=== PATIENT | male | born 1970 ===

== ENCOUNTER 2020-06-08 11:29 | Outpatient (REF) | payer OTHER, SELFPAY ==
[2020-06-08 12:57] LABS: MANUAL DIFF FLAG NO
[2020-06-08 13:11] LABS: Basophils Absolute Auto 0.1 X10*3/uL (0.0-0.2); Basophils Percent Auto 0.6 % (0-2); Eosinophils Absolute Auto 0.2 X10*3/uL (0.0-0.4); Eosinophils Percent Auto 1.9 % (0-4); Hematocrit 45.9 % (42-52); Hemoglobin 15.9 g/dl (14.0-18.0); Imm Gran Abs Auto 0.05 X10*3/uL (0.00-0.03); Imm Gran Pct Auto 0.6 % (0.0-0.4); Lymphocytes Absolute Auto 2.3 X10*3/uL (1.2-4.9); Lymphocytes Percent Auto 29.2 % (20-40); Mean Corpuscular HGB Conc 34.6 g/dl (31.0-36.0); Mean Corpuscular Hemoglobin 33.8 pg (27.0-33.0); Mean Corpuscular Volume 97.7 fL (80-98); Mean Platelet Volume 10.2 fL (9.4-12.4); Monocytes Absolute Auto 0.7 X10*3/uL (0.1-1.2); Monocytes Percent Auto 8.3 % (2-11); Neutrophils Absolute Auto 4.6 X10*3/uL (2.0-8.3); Neutrophils Percent Auto 59.4 % (45-73); Platelet Count 197 X10*3/uL (160-400); Red Cell Distribution Width 11.7 % (11.0-16.0); White Blood Count 7.8 X10*3/uL (4.8-10.8)
[2020-06-08 13:29] LABS: Alanine Aminotransferase 142 U/L (0-40); Albumin Level 4.3 g/dL (3.5-5.0); Alkaline Phosphatase 80 U/L (39-117); Anion Gap 15 (12-20); Aspartate Amino Transferase 80 U/L (5-37); Bilirubin Total 0.8 mg/dL (0.0-1.0); Blood Urea Nitrogen 16 mg/dL (9-16); Carbon Dioxide 26 mmol/L (22-29); Chloride 106 mmol/L (96-108); Cholesterol 217 mg/dL; Estimated Glomerular Filt Rate > 60; Glucose Fasting 90 mg/dL (60-99); HDL Cholesterol 33 mg/dL; LDL Cholesterol Calculated 133 mg/dl; Potassium 3.9 mmol/L (3.3-5.1); Sodium 143 mmol/L (135-145); Total Protein 7.1 g/dL (6.5-8.0); Triglycerides 257 mg/dL
[2020-06-08 13:50] LABS: TSH reflex Free T4 1.39 uIU/mL (0.32-4.0)
[2020-06-08 13:58] LABS: Erythrocyte Sedimentation Rate 1 MM/HR (0-15)
[2020-06-08 14:06] LABS: Glucose Urine UA NEG (NEG); Leukocyte Esterase Urine NEG (NEG); Nitrite Urine NEG (NEG); PH 5.5 (5.0-8.0); Specific Gravity - Urine >= 1.030 (1.005-1.025); Urine Blood NEG (NEG); Urine Ketones NEG (NEG); Urine Protein NEG (NEG-TRACE)
[2020-06-08 14:17] LABS: Appearance Urine CLEAR; Color Urine YELLOW
== END 2020-06-08 11:30 | disposition home or self-care (01) ==
LOC: HO.LAB 11:29
PROVIDERS: PCP Internal Medicine; Visit Provider Internal Medicine
DX: E66.9 Obesity, unspecified (principal); E78.00 Pure hypercholesterolemia, unspecified; R79.89 Other specified abnormal findings of blood chemistry; M47.814 Spondylosis without myelopathy or radiculopathy, thoracic region; F17.200 Nicotine dependence, unspecified, uncomplicated; J45.909 Unspecified asthma, uncomplicated; L81.9 Disorder of pigmentation, unspecified
CPT/HCPCS: 36415; 80053; 80061; 81003; 84443; 85025; 85652

== ENCOUNTER 2020-07-14 15:27 | Outpatient (REF) | payer OTHER, SELFPAY ==
[2020-07-15 04:42] LABS: SARS COV2 PCR INHOUSE NEGATIVE (Negative)
== END 2020-07-14 15:28 | disposition home or self-care (01) ==
LOC: HO.LAB 15:27
PROVIDERS: Visit Provider Internal Medicine
DX: Z20.822 Contact with and (suspected) exposure to COVID-19 (principal)
CPT/HCPCS: C9803; U0003

== ENCOUNTER 2020-09-05 11:23 | Outpatient (REF) | payer OTHER, SELFPAY ==
[2020-09-05 12:33] LABS: Alanine Aminotransferase 158 U/L (0-40); Albumin Level 4.2 g/dL (3.5-5.0); Alkaline Phosphatase 73 U/L (39-117); Anion Gap 12 (12-20); Aspartate Amino Transferase 85 U/L (5-37); Bilirubin Total 1.1 mg/dL (0.0-1.0); Blood Urea Nitrogen 19 mg/dL (9-16); Calcium 9.2 mg/dL (8.4-10.2); Carbon Dioxide 24 mmol/L (22-29); Chloride 104 mmol/L (96-108); Estimated Glomerular Filt Rate > 60; Gamma Glutamyl Transpeptidase 181 U/L (11-51); Glucose Random 124 mg/dL (60-115); Potassium 3.9 mmol/L (3.3-5.1); Sodium 136 mmol/L (135-145); Total Protein 6.9 g/dL (6.5-8.0)
[2020-09-06 08:03] LABS: HBS Num1 0.27 mIU/mL (0-7.99); HBc Num1 0.04 S/CO (0.00-0.79); Hepatitis A Antibody IgM 0.15 Index (0-0.79); Hepatitis B Core Antibody Nonreactive (Nonreactive); ~HepC Num1 0.13 S/CO (0.00-0.79); ~Hepatitis A Antibody IgM Nonreactive (Nonreactive); ~Hepatitis B Surface Antibody NONREACTIVE (Nonreactive); ~Hepatitis C Antibody Nonreactive (Nonreactive)
[2020-09-06 08:27] LABS: HBsAGNum1 0.26 S/CO (0.00-0.99); Hepatitis B Surface Antigen Negative (Negative)
== END 2020-09-05 11:24 | disposition home or self-care (01) ==
LOC: HO.LAB 11:23
PROVIDERS: PCP Internal Medicine; Visit Provider Internal Medicine
DX: Z01.84 Encounter for antibody response examination (principal); R79.89 Other specified abnormal findings of blood chemistry
CPT/HCPCS: 36415; 80053; 82977; 86704; 86706; 86709; 86803; 87340

== ENCOUNTER 2020-10-10 08:45 | Outpatient (REF) | payer OTHER, SELFPAY ==
--- NOTE | ~2020-10-10 | US_ITS ---
EXAMINATION: US ABDOMEN COMPLETE CLINICAL INFORMATION: Other specified abnormal findings of blood chemistry. COMPARISON: Abnormal blood chemistry TECHNIQUE: Real-time imaging of the abdominal viscera. FINDINGS: PANCREAS: The pancreas is completely obscured by overlying gas. ABDOMINAL AORTA: The proximal, mid, and distal segments are normal in caliber. INFERIOR VENA CAVA: Visualized portions are normal. LIVER: The liver is normal in size. The liver contour is normal. There is diffuse increased liver echogenicity with focal fatty sparing adjacent to gallbladder. No focal hepatic lesion. There is no intrahepatic biliary duct dilatation seen. GALLBLADDER: There are multiple echogenic mobile gallstones without wall thickening. No pericholecystic fluid collection. COMMON BILE DUCT: Normal in caliber measuring 0.4 cm in diameter. RIGHT KIDNEY: Normal. No hydronephrosis. No renal calculi or focal parenchymal lesions. The kidney measures 11.6 cm in maximum dimension. LEFT KIDNEY: 12.2 No hydronephrosis or renal calculi. The kidney measures 12.2 cm in maximum dimension. There is anechoic cyst midpole measuring 1.6 x 1.3 x 1.4 cm. There is an echogenic calcified wall. SPLEEN: Normal. The spleen measures 10.0 cm in maximum dimension. FREE FLUID: None. US/US abdomen complete IMPRESSION: Oblique cyst midpole left kidney. Hepatic steatosis with areas of focal fatty sparing. Rest of the abdominal ultrasound is unremarkable.
== END 2020-10-10 08:46 | disposition home or self-care (01) ==
LOC: HO.US 08:45
PROVIDERS: Visit Provider Internal Medicine
DX: R79.89 Other specified abnormal findings of blood chemistry (principal)
CPT/HCPCS: 76700

== ENCOUNTER 2020-12-07 11:16 | Outpatient (REF) | payer OTHER, SELFPAY ==
[2020-12-07 11:50] LABS: MANUAL DIFF FLAG NO
[2020-12-07 12:03] LABS: Basophils Absolute Auto 0.1 X10*3/uL (0.0-0.2); Basophils Percent Auto 0.6 % (0-2); Eosinophils Absolute Auto 0.2 X10*3/uL (0.0-0.4); Eosinophils Percent Auto 2.2 % (0-4); Hematocrit 47.8 % (42-52); Hemoglobin 16.6 g/dl (14.0-18.0); Imm Gran Abs Auto 0.09 X10*3/uL (0.00-0.03); Lymphocytes Absolute Auto 2.3 X10*3/uL (1.2-4.9); Lymphocytes Percent Auto 25.7 % (20-40); Mean Corpuscular HGB Conc 34.7 g/dl (31.0-36.0); Mean Corpuscular Hemoglobin 34.4 pg (27.0-33.0); Mean Platelet Volume 9.7 fL (9.4-12.4); Monocytes Absolute Auto 0.7 X10*3/uL (0.1-1.2); Monocytes Percent Auto 7.6 % (2-11); Neutrophils Absolute Auto 5.7 X10*3/uL (2.0-8.3); Neutrophils Percent Auto 62.9 % (45-73); Platelet Count 181 X10*3/uL (160-400); Red Blood Count 4.83 X10*6/uL (4.60-5.80); Red Cell Distribution Width 11.7 % (11.0-16.0); White Blood Count 9.1 X10*3/uL (4.8-10.8)
[2020-12-07 12:37] LABS: Alanine Aminotransferase 183 U/L (0-40); Albumin Level 4.4 g/dL (3.5-5.0); Alkaline Phosphatase 80 U/L (39-117); Anion Gap 13 (12-20); Aspartate Amino Transferase 113 U/L (5-37); Bilirubin Total 0.9 mg/dL (0.0-1.0); Blood Urea Nitrogen 17 mg/dL (9-16); Calcium 9.6 mg/dL (8.4-10.2); Carbon Dioxide 26 mmol/L (22-29); Chloride 105 mmol/L (96-108); Cholesterol 244 mg/dL; Estimated Glomerular Filt Rate > 60; Glucose Fasting 122 mg/dL (60-99); HDL Cholesterol 38 mg/dL; LDL Cholesterol Calculated 165 mg/dl; Potassium 4.2 mmol/L (3.3-5.1); Sodium 140 mmol/L (135-145); Total Protein 7.4 g/dL (6.5-8.0); Triglycerides 205 mg/dL
[2020-12-07 13:26] LABS: Glucose Urine UA NEG (NEG); Leukocyte Esterase Urine NEG (NEG); Nitrite Urine NEG (NEG); PH 5.5 (5.0-8.0); Specific Gravity - Urine >= 1.030 (1.005-1.025); Urine Blood NEG (NEG); Urine Ketones NEG (NEG); Urine Protein NEG (NEG-TRACE)
[2020-12-07 13:30] LABS: Appearance Urine CLEAR; Color Urine YELLOW
[2020-12-08 05:11] LABS: HBc Num1 0.04 S/CO (0.00-0.79); HBsAGNum1 0.19 S/CO (0.00-0.99); Hepatitis B Core Antibody Nonreactive (Nonreactive); Hepatitis B Surface Antigen Negative (Negative); ~HepC Num1 0.13 S/CO (0.00-0.79); ~Hepatitis A Antibody IgM Nonreactive (Nonreactive); ~Hepatitis C Antibody Nonreactive (Nonreactive)
[2020-12-08 05:14] LABS: HBS Num1 0.21 mIU/mL (0-7.99); ~Hepatitis B Surface Antibody NONREACTIVE (Nonreactive)
== END 2020-12-07 11:17 | disposition home or self-care (01) ==
LOC: HO.LAB 11:16
PROVIDERS: PCP Internal Medicine; Visit Provider Internal Medicine
DX: J45.20 Mild intermittent asthma, uncomplicated (principal); F17.200 Nicotine dependence, unspecified, uncomplicated; E78.00 Pure hypercholesterolemia, unspecified; R94.5 Abnormal results of liver function studies; E66.9 Obesity, unspecified
CPT/HCPCS: 36415; 80053; 80061; 81003; 84443; 85025; 86704; 86706; 86709; 86803; 87340

== ENCOUNTER → 2022-01-14 13:51 | Outpatient (BNVA) | payer OTHER, SELFPAY | PROVIDERS: PCP Internal Medicine; Visit Provider Surgery | DX: L72.3 Sebaceous cyst (principal); E66.9 Obesity, unspecified; F32.9 Major depressive disorder, single episode, unspecified; F41.9 Anxiety disorder, unspecified; F17.210 Nicotine dependence, cigarettes, uncomplicated; Z68.34 Body mass index [BMI] 34.0-34.9, adult | CPT/HCPCS: 99202 ==

== ENCOUNTER → 2022-02-04 09:40 | Outpatient (BNVA) | payer OTHER, SELFPAY | PROVIDERS: PCP Internal Medicine; Referring Provider Internal Medicine; Visit Provider Surgery | DX: L72.3 Sebaceous cyst (principal); R73.09 Other abnormal glucose; R79.89 Other specified abnormal findings of blood chemistry; E78.00 Pure hypercholesterolemia, unspecified; E66.9 Obesity, unspecified; Z68.34 Body mass index [BMI] 34.0-34.9, adult; F17.200 Nicotine dependence, unspecified, uncomplicated | CPT/HCPCS: 99212 ==

== ENCOUNTER 2022-11-26 13:07 | Outpatient (AMB) | payer OTHER, SELFPAY ==
[2022-11-26 13:09] VITALS: BP 128/82; PULSE 66; O2SAT 96; BMI 31.9
--- NOTE | 2022-11-26 13:09 | MHC.PC.OV ---
Vital Signs 11/26/22 13:09 Height 5 ft 11 in Weight 228 lb 8 oz BMI 31.9 BP 128/82 Blood Pressure Location Lt brachial Position Sitting Pulse 66 Pulse Source Pulse Oximeter Pulse Oximetry (%) 96 Oxygen Delivery Method Room Air Intake Visit Reasons: Tooth pain Animal Nutritionist Required: No Accompanied by: Self / Same As Patient Allergies No Known Allergies [No Known Allergies*] Allergy (Verified 11/26/22 13:51) Medication List - Last Reconciled 11/26/22 by Jon Pal MD albuterol sulfate 90 mcg/actuation 2 puffs inhalation Q6H PRN clonazepam 1 mg PO TID PRN 28 days fluticasone propionate 50 mcg/actuation 2 sprays intranasal DAILY loratadine 10 mg PO DAILY PRN quetiapine 100 mg PO BEDTIME tramadol 50 mg PO QID PRN 28 days trazodone 50 mg PO BEDTIME PRN 30 days Tobacco use date assessed: 11/26/22 Dental Screening Dental Screen Date: 11/26/22 Did you have a dental visit in the last 12 months?: No Did you have a dental problem in the last 6 months where you did not have access to dental care?: No Was dental information given to patient?: No HPI Tooth pain HPI Details Patient comes in today complaining of increasing pain over one of his left lower molar pain for more than 1 week now Feels that the gum below his painful tooth is swollen and thinks that it is infected States that he tried calling his dentist yesterday for an urgent appointment but the earliest appointment they can give him is on 01/23/23 Thinks that he needs some Abx at this time and he was supposedly advised by his dentist's office to check with his PCP regarding this He denies any fever No other acute complaints or symptoms are noted PFSH Medical History Allergic rhinitis Anxiety Asthma Degenerative arthritis of thoracic spine Depression Elevated LFTs Hyperpigmented skin lesion Insomnia Obesity (BMI 30-39.9) Pure hypercholesterolemia Smoker Surgical History No pertinent past surgical history Family History Father Cancer Mother Medical history unknown Son No problems noted. Daughter No problems noted. Daughter No problems noted. Sister No problems noted. Brother No problems noted. Social History Housing: Apartment Alcohol intake: current Alcohol intake frequency: holidays/special occasions only Patient Tobacco Use Status: Current everyday Tobacco user Tobacco use type: Cigarette Cigarettes Per Day: 3 e-Cigarette/Vaping Use: Never Used Second Hand Smoke Exposure: Yes service: No Current occupational status: disabled Cognitive needs: No Hearing needs: No Vision needs: No Questionnaire PHQ-9 Over the last 2 weeks, how often have you been bothered by any of the following problems? 1. Little interest or pleasure in doing things: not at all 2. Feeling down, depressed, or hopeless: several days 3. Trouble falling or staying asleep, or sleeping too much: several days 4. Feeling tired or having little energy: several days 5. Poor appetite or overeating: not at all 6. Feeling bad about yourself - or that you are a failure or have let yourself or your family down: not at all 7. Trouble concentrating on things, such as reading the newspaper or watching television: not at all 8. Moving or speaking so slowly that other people could have noticed. Or the opposite - being so fidgety or restless that you have been moving around a lot more than usual: not at all 9. Thoughts that you would be better off or of hurting yourself in some way: not at all Total score: 3 Depression Screening Interpretation: Positive Depression Screening Follow-up: Existing condition and In treatment 20518 - PHQ-9 Billing: Yes Source: Developed by Drs. Gerardo Anaya, Leah Stevenson, Stevo Arevalo and colleagues, with an educational lopez from [employer]. Thrive Questionnaire Date Thrive assessed: 11/26/22 I am a: Patient What is your living situation today?: I have a steady place to live Within the past 12 months, did the food you bought not last and you didn't have the money to get more?: Never true Within the past 12 months, did you worry whether your food would run out before you got money to buy more?: Never true Do you have trouble paying for medicines?: No Do you have trouble getting transportation to medical appointments?: No Do you have trouble paying your heating and electricity bill?: No Do you have trouble taking care of your child, family member or friend?: No Do you have trouble with day-to-day activities such as bathing, preparing meals, shopping, managing finances, etc.?: No Are you currently unemployed and looking for a job?: No Are you interested in more education?: No Please select the resources that you would like help with: None Currently or been in a relationship where the following occur: no concerns reported AUDIT C Alcohol Use Questionnaire (AUDIT-C) 1. How often do you have a drink containing alcohol?: Monthly or less 2. How many drinks containing alcohol do you have on a typical day when you are drinking?: 1 or 2 3. How often do you have six or more drinks on one occasion?: Never Total Score: 1 Score Reviewed/Action Taken: Yes KATH-7 AMB Questionnaire KATH-7 Date KATH - 7 assessed: 11/26/22 Feeling nervous, anxious, or on edge: 1 = Several days Not being able to stop or control worryin = Not at all Worrying too much about different things: 0 = Not at all Trouble relaxin = Not at all Being so restless that it is hard to sit still: 0 = Not at all Becoming easily annoyed or irritable: 0 = Not at all Feeling afraid as if something awful might happen: 0 = Not at all Total KATH-7 score (0-4 normal; 5-9 mild; 10-14 moderate; 15-21 severe): 1 Source: Developed by Drs. Gerardo Anaya, Leah Stevenson, Stevo Arevalo and colleagues, with an educational lopez from [employer]. Review of Systems Const Reports fatigue, Denies fever(s) and Denies headache(s) ENT Reports dental pain (see HPI), Denies dysphagia, Denies dizziness, Denies otalgia, Denies headache(s), Denies odynophagia and Denies sore throat Card Denies chest pain, Denies palpitations and Denies dyspnea Resp Denies cough, Denies dyspnea and Denies wheezing GI Denies abdominal pain, Denies constipation, Denies dysphagia, Denies heartburn, Denies diarrhea, Denies nausea, Denies odynophagia and Denies vomiting Denies dysuria, Denies nocturia and Denies urinary frequency Musc Details: (+) recurrent right hand pain Reports back pain (over the lower thoracic and lumbar spine - chronic) Neuro Denies dizziness and Denies headache(s) Endo Reports fatigue and Denies palpitations Aller/Immun Denies wheezing Physical exam (Primary Care) Vital Signs: Last Vital Signs Pulse 66 11/26/22 13:09 BP 128/82 11/26/22 13:09 Pulse Ox 96 11/26/22 13:09 Oxygen Delivery Method Room Air 11/26/22 13:09 BMI result Body Mass Index 31.9 Tobacco/Smoking Status: Tobacco use Status Tobacco use date assessed 11/26/22 11/26/22 13:13 Patient Tobacco Use Status Current everyday Tobacco 11/26/22 13:13 Tobacco use type Cigarette 11/26/22 13:13 e-Cigarette/Vaping Use Never Used 11/26/22 13:13 PHQ-9: PHQ-9 Score PHQ-9: Total score 3 11/26/22 13:13 Depression Screening Interpretation: Positive Depression Screening Follow-up: Existing condition and In treatment Thrive Assessment: Date of Thrive Assessment Date Thrive assessed 11/26/22 11/26/22 13:13 Currently or been in a relationship where the following occur: no concerns reported Const General: no acute distress and alert HENMT Other: (+) tenderness over the gum/base of the 2nd posterior lower molar Neck Neck: Yes no lymphadenopathy and Yes supple Resp Auscultation: clear to auscultation bilaterally GI Palpation (GI): Soft to palpation and nontender Extrem General: Yes no clubbing, cyanosis or edema Assessment and Plan Assessment & Plan (1) Dental abscess: Code(s): K04.7 - Periapical abscess without sinus Plan: Will start him empirically for now on Cephalexin 500 mg Q 6 hours x 7 days Patient has an appointment with his dentist on 01/23/23 - advised that this is almost 2 months away and that the Abx we prescribed him today is at best, a TEMPORARY measure, and that he should reach out to his dentist's office to see if they can out him on a cancellation list and get him in ANG[facility]I to take care of his tooth problem Patient is instructed to just take some OTC Extra-Strength Tylenol PRN for pain in the meantime Plan Follow up as scheduled in January 2023 Medications: New cephalexin 500 mg PO QID 7 days 28 caps 0RF Coding Level of Care Code Est Pt Level 3 (93809) Diagnoses Dental abscess K04.7
== END 2022-11-26 14:31 | disposition home or self-care (01) ==
PROVIDERS: PCP Internal Medicine; Visit Provider Internal Medicine
DX: K04.7 Periapical abscess without sinus (principal)
CPT/HCPCS: 99213

== ENCOUNTER 2023-02-04 13:04 | Outpatient (AMB) | payer OTHER, SELFPAY ==
[2023-02-04 13:11] VITALS: BP 126/80; PULSE 71; O2SAT 96; BMI 32.1
--- NOTE | 2023-02-04 13:11 | MHC.PC.OV ---
Vital Signs 02/04/23 13:11 Height 5 ft 11 in Weight 230 lb 4 oz BMI 32.1 BP 126/80 Blood Pressure Location Lt brachial Position Sitting Pulse 71 Pulse Source Pulse Oximeter Pulse Oximetry (%) 96 Oxygen Delivery Method Room Air Intake Visit Reasons: hyperlipidemia Faro Dealer Required: No Accompanied by: Self / Same As Patient Allergies No Known Allergies [No Known Allergies*] Allergy (Verified 02/04/23 14:28) Medication List - Last Reconciled 02/04/23 by Jon Pal MD albuterol sulfate 90 mcg/actuation 2 puffs inhalation Q6H PRN clonazepam 1 mg PO TID PRN 28 days fluticasone propionate 50 mcg/actuation 2 sprays intranasal DAILY loratadine 10 mg PO DAILY PRN quetiapine 100 mg PO BEDTIME tramadol 50 mg PO QID PRN 28 days trazodone 50 mg PO BEDTIME PRN 30 days zolpidem 10 mg PO BEDTIME PRN Tobacco use date assessed: 02/04/23 Dental Screening Dental Screen Date: 02/04/23 Did you have a dental visit in the last 12 months?: Yes Did you have a dental problem in the last 6 months where you did not have access to dental care?: No Was dental information given to patient?: Patient has dentist HPI hyperlipidemia HPI Details Patient comes in today for his follow up visit States that he feels okay Still has chronic low back pain but states that his current Rx help keep his pain manageable Also relates (+) urinary frequency and nocturia lately; denies any pain on urination - would like to know why he is now urinating this often He denies any headaches or dizziness Denies any chest pains, no increased SOB No nausea/vomiting, no abdominal pain No change in bowel habits noted He has not had any follow up labs done since November 2020 and have advised him that he needs to get some labs done [facility] Medical History Allergic rhinitis Hyperpigmented skin lesion Obesity (BMI 30-39.9) Smoker Depression Anxiety Insomnia Degenerative arthritis of thoracic spine Asthma Elevated LFTs Pure hypercholesterolemia Surgical History No pertinent past surgical history Family History Father Cancer Mother Medical history unknown Son No problems noted. Daughter No problems noted. Daughter No problems noted. Sister No problems noted. Brother No problems noted. Social History Housing: Apartment Alcohol intake: current Alcohol intake frequency: holidays/special occasions only Patient Tobacco Use Status: Current everyday Tobacco user Tobacco use type: Cigarette Cigarettes Per Day: 3 e-Cigarette/Vaping Use: Never Used Second Hand Smoke Exposure: Yes service: No Current occupational status: disabled Cognitive needs: No Hearing needs: No Vision needs: No Questionnaire PHQ-9 Over the last 2 weeks, how often have you been bothered by any of the following problems? 1. Little interest or pleasure in doing things: not at all 2. Feeling down, depressed, or hopeless: several days 3. Trouble falling or staying asleep, or sleeping too much: several days 4. Feeling tired or having little energy: several days 5. Poor appetite or overeating: not at all 6. Feeling bad about yourself - or that you are a failure or have let yourself or your family down: not at all 7. Trouble concentrating on things, such as reading the newspaper or watching television: not at all 8. Moving or speaking so slowly that other people could have noticed. Or the opposite - being so fidgety or restless that you have been moving around a lot more than usual: not at all 9. Thoughts that you would be better off or of hurting yourself in some way: not at all Total score: 3 Depression Screening Interpretation: Positive Depression Screening Follow-up: Existing condition and In treatment Depression Screening Done: Yes 13568 - PHQ-9 Billing: Yes Source: Developed by Drs. Gerardo Anaya, Leah Stevenson, Stevo Arevalo and colleagues, with an educational lopez from [employer]. Thrive Questionnaire Date Thrive assessed: 02/04/23 I am a: Patient What is your living situation today?: I have a steady place to live Within the past 12 months, did the food you bought not last and you didn't have the money to get more?: Never true Within the past 12 months, did you worry whether your food would run out before you got money to buy more?: Never true Do you have trouble paying for medicines?: No Do you have trouble getting transportation to medical appointments?: No Do you have trouble paying your heating and electricity bill?: No Do you have trouble taking care of your child, family member or friend?: No Do you have trouble with day-to-day activities such as bathing, preparing meals, shopping, managing finances, etc.?: No Are you currently unemployed and looking for a job?: No Are you interested in more education?: No Please select the resources that you would like help with: None Currently or been in a relationship where the following occur: no concerns reported AUDIT C Alcohol Use Questionnaire (AUDIT-C) 1. How often do you have a drink containing alcohol?: Monthly or less 2. How many drinks containing alcohol do you have on a typical day when you are drinking?: 1 or 2 3. How often do you have six or more drinks on one occasion?: Never Total Score: 1 Score Reviewed/Action Taken: Yes KATH-7 AMB Questionnaire KATH-7 Date KATH - 7 assessed: 02/04/23 Feeling nervous, anxious, or on edge: 1 = Several days Not being able to stop or control worryin = Not at all Worrying too much about different things: 0 = Not at all Trouble relaxin = Not at all Being so restless that it is hard to sit still: 0 = Not at all Becoming easily annoyed or irritable: 0 = Not at all Feeling afraid as if something awful might happen: 0 = Not at all Total KATH-7 score (0-4 normal; 5-9 mild; 10-14 moderate; 15-21 severe): 1 Source: Developed by Drs. Gerardo Anaya, Leah Stevenson, Stevo Arevalo and colleagues, with an educational lopez from [employer]. Review of Systems Const Denies chills, Reports difficulty sleeping, Reports fatigue, Denies fever(s) and Denies headache(s) ENT Denies dysphagia, Denies dizziness, Denies otalgia, Denies headache(s), Denies odynophagia and Denies sore throat Card Denies chest pain, Denies palpitations and Reports dyspnea on exertion (mild, at times) Resp Denies cough, Reports dyspnea on exertion (mild, at times) and Denies wheezing GI Denies abdominal pain, Denies constipation, Denies dysphagia, Denies heartburn, Denies diarrhea, Denies nausea, Denies odynophagia and Denies vomiting Denies hematuria, Denies dysuria, Reports nocturia and Reports urinary frequency Musc Details: (+) recurrent right hand pain Reports back pain (over the lower thoracic and lumbar spine - chronic) Skin/Breast Denies rash Neuro Denies dizziness and Denies headache(s) Endo Reports fatigue and Denies palpitations Aller/Immun Denies wheezing Physical exam (Primary Care) Vital Signs: Last Vital Signs Pulse 71 02/04/23 13:11 BP 126/80 02/04/23 13:11 Pulse Ox 96 02/04/23 13:11 Oxygen Delivery Method Room Air 02/04/23 13:11 BMI result Body Mass Index 32.1 Tobacco/Smoking Status: Tobacco use Status Tobacco use date assessed 02/04/23 02/04/23 13:14 Patient Tobacco Use Status Current everyday Tobacco 02/04/23 13:14 Tobacco use type Cigarette 02/04/23 13:14 e-Cigarette/Vaping Use Never Used 02/04/23 13:14 PHQ-9: PHQ-9 Score PHQ-9: Total score 3 02/04/23 13:14 Depression Screening Interpretation: Positive Depression Screening Follow-up: Existing condition and In treatment Thrive Assessment: Date of Thrive Assessment Date Thrive assessed 02/04/23 02/04/23 13:14 Currently or been in a relationship where the following occur: no concerns reported Const General: no acute distress and alert HENMT Ears: TM's normal bilaterally and EAC's normal Throat: Yes posterior oropharynx normal and Yes tonsils normal (no TP congestion noted) Neck Neck: Yes no lymphadenopathy and Yes supple Resp Auscultation: clear to auscultation bilaterally, no rales and no wheezes Cardio Rate: regular rate Rhythm: regular rhythm Heart sounds: no murmurs GI Palpation (GI): Soft to palpation and nontender Auscultation: normal bowel sounds Back/Spine/Pelvis Thoracic/Lumbar Spine: thoracic spinal tenderness (lower thoracic) and lumbar spinal tenderness Skin Rashes: no rashes Extrem General: Yes no clubbing, cyanosis or edema Assessment and Plan Assessment & Plan (1) Pure hypercholesterolemia: Code(s): E78.00 - Pure hypercholesterolemia, unspecified Plan: Patient is reminded that his cholesterol levels were still significantly elevated, with his LDL cholesterol > 160 mg/dl, when they were last checked over 2 years ago now in November 2020, and that he should try to get his repeat labs done ANGELI - labs ordered Reinforced low cholesterol diet (2) Elevated LFTs: Code(s): R79.89 - Other specified abnormal findings of blood chemistry Plan: Abdominal US done a couple of years ago revealed (+) hepatosteatosis and also (+) cholelithiasis with NO evidence of cholecystitis or obstruction; also (+) small left renal simple cyst Advised that his elevated LFTs were most likely related to his weight and he should continue to avoid alcohol as well as Tylenol-containing meds Will recheck his LFTs ANGELI for follow up (3) Asthma: Code(s): J45.909 - Unspecified asthma, uncomplicated Qualifiers: Asthma severity: mild Asthma persistence: intermittent Asthma complication type: uncomplicated Qualified Code(s): J45.20 - Mild intermittent asthma, uncomplicated Plan: Stable Continue Albuterol HFA 2 puffs 4 times a day as needed (4) Allergic rhinitis: Code(s): J30.9 - Allergic rhinitis, unspecified Qualifiers: Allergic rhinitis trigger: unspecified Allergic rhinitis seasonality: seasonal Qualified Code(s): J30.2 - Other seasonal allergic rhinitis Plan: Continue Fluticasone 50 mcg nasal spray QD PRN and Loratadine 10 mg QD PRN (5) Degenerative arthritis of thoracic spine: Code(s): M47.814 - Spondylosis without myelopathy or radiculopathy, thoracic region Qualifiers: Spinal osteoarthritis complication: without myelopathy or radiculopathy Qualified Code(s): M47.814 - Spondylosis without myelopathy or radiculopathy, thoracic region Plan: Reinforced activity and weight-lifting restrictions Continue Tramadol 50 mg TID PRN (6) Insomnia: Code(s): G47.00 - Insomnia, unspecified Qualifiers: Insomnia type: unspecified Qualified Code(s): G47.00 - Insomnia, unspecified Plan: Sleep hygiene reinforced States that his Quetiapine was helping with his sleep at night in the past but no longer Continue Trazodone 50 mg Q HS PRN (7) Anxiety: Code(s): F41.9 - Anxiety disorder, unspecified Plan: Continue Clonazepam 1 mg TID PRN (8) Depression: Code(s): F32.9 - Major depressive disorder, single episode, unspecified Qualifiers: Depression Type: unspecified Qualified Code(s): F32.9 - Major depressive disorder, single episode, unspecified Plan: Continue Quetiapine 100 mg Q HS Follow up with psychiatry as scheduled (9) Smoker: Code(s): F17.200 - Nicotine dependence, unspecified, uncomplicated Plan: Counseled again on smoking cessation States that he has been able to cut down his smoking and is now smoking only no more than 3 cigarettes a day (10) Obesity (BMI 30-39.9): Code(s): E66.9 - Obesity, unspecified Plan: Reinforced diet/exercise as tolerated/lose weight Plan Follow up in 3 months Orders: Orders Comprehensive [place]. Panel Fast Today E78.00 - Pure hypercholesterolemia, unspecified Hemoglobin A1c Today R73.01 - Impaired fasting glucose TSH reflex Free T4 Today E78.00 - Pure hypercholesterolemia, unspecified UA CC w/rflx Micro + Cult Today R30.0 - Dysuria Vitamin D 25-OH Total Today E55.9 - Vitamin D deficiency, unspecified Prostate Specific Antigen Today N40.0 - Benign prostatic hyperplasia without lower urinary tract symptoms, R35.0 - Frequency of micturition Complete Blood Count Auto Diff Today I10 - Essential (primary) hypertension Lipid Panel Today E78.00 - Pure hypercholesterolemia, unspecified Coding Level of Care Code Est Pt Level 4 (35599) Diagnoses Pure hypercholesterolemia E78.00 Elevated LFTs R79.89 Mild intermittent asthma without complication J45.20 Asthma severity: mild Asthma persistence: intermittent Asthma complication type: uncomplicated Seasonal allergic rhinitis, unspecified trigger J30.2 Allergic rhinitis trigger: unspecified Allergic rhinitis seasonality: seasonal 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 Spinal osteoarthritis complication: without myelopathy or radiculopathy Insomnia, unspecified type G47.00 Insomnia type: unspecified Anxiety F41.9 Depression, unspecified depression type F32.9 Depression Type: unspecified Smoker F17.200 Obesity (BMI 30-39.9) E66.9
== END 2023-02-04 14:32 | disposition home or self-care (01) ==
PROVIDERS: PCP Internal Medicine; Visit Provider Internal Medicine
DX: E78.00 Pure hypercholesterolemia, unspecified (principal); R74.01 Elevation of levels of liver transaminase levels; J45.20 Mild intermittent asthma, uncomplicated; M47.814 Spondylosis without myelopathy or radiculopathy, thoracic region; G47.00 Insomnia, unspecified; F41.9 Anxiety disorder, unspecified
CPT/HCPCS: 99214

== ENCOUNTER 2023-05-13 06:07 | Outpatient (REF) | payer OTHER, SELFPAY ==
[2023-05-13 06:34] LABS: MANUAL DIFF FLAG NO
[2023-05-13 07:21] LABS: Basophils Percent Auto 0.3 % (0-2); Eosinophils Absolute Auto 0.1 X10*3/uL (0.0-0.4); Eosinophils Percent Auto 1.6 % (0-4); Hematocrit 42.6 % (42.0-52.0); Hemoglobin 15.1 g/dl (14.0-18.0); Imm Gran Abs Auto 0.05 X10*3/uL (0.00-0.03); Imm Gran Pct Auto 0.6 % (0.0-0.4); Lymphocytes Absolute Auto 2.5 X10*3/uL (1.2-4.9); Mean Corpuscular HGB Conc 35.4 g/dl (31.0-36.0); Mean Corpuscular Hemoglobin 32.8 pg (27.0-33.0); Mean Corpuscular Volume 92.6 fL (80.0-98.0); Mean Platelet Volume 10.2 fL (9.4-12.4); Monocytes Absolute Auto 0.5 X10*3/uL (0.1-1.2); Monocytes Percent Auto 5.8 % (2-11); Neutrophils Absolute Auto 5.6 x10*3/uL (2.0-8.3); Neutrophils Percent Auto 63.7 % (45-73); Platelet Count 205 X10*3/uL (160-400); Red Cell Distribution Width 11.3 % (11.0-16.0); White Blood Count 8.8 X10*3/uL (4.8-10.8)
[2023-05-13 07:29] LABS: Estimated Average Glucose 235 mg/dL; Hemoglobin A1c % 9.8 % (<6.0)
[2023-05-13 08:01] LABS: Alanine Aminotransferase 27 U/L (0-40); Albumin Level 4.2 g/dL (3.5-5.0); Alkaline Phosphatase 72 U/L (39-117); Anion Gap 12 (12-20); Aspartate Amino Transferase 18 U/L (5-37); Bilirubin Total 0.8 mg/dL (0.0-1.0); Blood Urea Nitrogen 13 mg/dL (9-16); Calcium 9.3 mg/dL (8.4-10.2); Carbon Dioxide 27 mmol/L (22-29); Chloride 102 mmol/L (96-108); Cholesterol 232 mg/dL (<200); Estimated Glomerular Filt Rate > 60; Glucose Fasting 310 mg/dL (60-99); HDL Cholesterol 35 mg/dL (>40); LDL Cholesterol Calculated 138 mg/dL (<100); Potassium 3.5 mmol/L (3.3-5.1); Sodium 137 mmol/L (135-145); Total Protein 7.1 g/dL (6.5-8.0); Triglycerides 299 mg/dL (<150)
[2023-05-13 08:08] LABS: Prostate Specific Antigen 1.43 ng/mL (<0.05-4.0)
[2023-05-13 08:16] LABS: TSH reflex Free T4 3.13 uIU/mL (0.32-4.0); Vitamin D 25-OH Total 17.6 ng/mL (>30)
[2023-05-13 08:57] LABS: Appearance Urine Clear; Color Urine Yellow; Glucose Urine UA >=1000 mg/dL (Negative); Leukocyte Esterase Urine Negative (Negative); Nitrite Urine Negative (Negative); PH 5.5 (5.0-9.0); Specific Gravity - Urine 1.025 (1.005-1.025); UMIC TRIGGER UACC YES; Urine Blood Negative (Negative); Urine Ketones Trace mg/dL (Negative); Urine Protein Negative (Neg-Trace)
[2023-05-13 09:10] LABS: Bacteria Urine None Seen (None Seen); Hyaline Casts Urine 0-2 /LPF (0-2); RBC Urine 0-2 /HPF (0-2); Squamous Epithelial Cell Urine 0-2 /HPF (0-2); WBC Urine 0-5 /HPF (0-5)
== END 2023-05-13 06:08 | disposition home or self-care (01) ==
LOC: HO.LAB 06:07
PROVIDERS: PCP Internal Medicine; Visit Provider Internal Medicine
DX: E78.00 Pure hypercholesterolemia, unspecified (principal); N40.1 Benign prostatic hyperplasia with lower urinary tract symptoms; R35.0 Frequency of micturition; I10 Essential (primary) hypertension; R73.01 Impaired fasting glucose; E55.9 Vitamin D deficiency, unspecified; R30.0 Dysuria; Z12.5 Encounter for screening for malignant neoplasm of prostate
CPT/HCPCS: 36415; 80053; 80061; 81001; 82306; 83036; 84153; 84443; 85025

== ENCOUNTER 2023-05-13 06:37 | Emergency (ER) | payer OTHER, SELFPAY ==
--- NOTE | ~2023-05-13 | US_ITS ---
EXAMINATION: US VENOUS WITH DOPPLER UPPER EXTREMITY, LEFT CLINICAL INFORMATION: Left arm pain COMPARISON: None available. TECHNIQUE: Ultrasound of the upper extremity is performed using compression sonography and color and pulse Doppler flow with assessment of augmentation of flow. There is also imaging and Doppler assessment of the jugular and subclavian veins. Spectral analysis with color-flow imaging is performed. FINDINGS: Respiratory variation and normal compression are noted throughout the upper extremity including the axillary, basilic, brachial and cephalic veins. There is normal flow in the internal jugular and subclavian veins. There is no visible deep or superficial thrombophlebitis. The contralateral IJ vein and subclavian veins are patent. US/US venous duplex UE LT IMPRESSION: No DVT demonstrated in the left upper extremity
--- NOTE | ~2023-05-13 | XR_ITS ---
EXAMINATION: XR FOREARM, LEFT CLINICAL INFORMATION: Left forearm pain. Rule out fracture COMPARISON: None available. TECHNIQUE: AP and lateral views of the left forearm were obtained. FINDINGS: The bones and soft tissues are normal. No fracture. Imaged portions of the elbow and wrist are unremarkable. XR/XR forearm LT 2V IMPRESSION: Normal left forearm.
--- NOTE | ~2023-05-13 | XR_ITS ---
EXAMINATION: CHEST 2 VIEWS CLINICAL INFORMATION: cp. COMPARISON: 12/26/2016. TECHNIQUE: PA and lateral views of the chest obtained. FINDINGS: The lungs are well expanded. No focal infiltrate, effusion, edema, or pneumothorax. Tiny calcified granuloma in the left lower lobe incidentally noted. Cardiac and mediastinal silhouettes are within normal limits for technique. No acute bony abnormality seen. Mild degenerative changes in the spine XR/XR chest 2V IMPRESSION: No evidence of acute disease.
--- NOTE | 2023-05-13 06:40 | ECG_ITS ---
Test Reason : chest pain Blood Pressure : / mmHG Vent. Rate : 075 BPM Atrial Rate : 075 BPM P-R Int : 172 ms QRS Dur : 088 ms QT Int : 406 ms P-R-T Axes : 050 037 039 degrees QTc Int : 453 ms Normal sinus rhythm Normal ECG When compared with ECG of 05-FEB-2016 15:42, No significant change was found Referred By: Generic ED Physician Electronically Signed By:BILL CARDENAS MD
[2023-05-13 06:54] LABS: MANUAL DIFF FLAG NO
[2023-05-13 06:55] VITALS: BP 139/89; PULSE 70; RESP 16; TEMP 36.6; O2SAT 97; BMI 30.4
[2023-05-13 06:55] LABS: Basophils Absolute Auto 0.1 X10*3/uL (0.0-0.2); Basophils Percent Auto 0.6 % (0-2); Eosinophils Absolute Auto 0.1 X10*3/uL (0.0-0.4); Eosinophils Percent Auto 1.5 % (0-4); Hematocrit 42.7 % (42.0-52.0); Hemoglobin 15.3 g/dl (14.0-18.0); Imm Gran Abs Auto 0.04 X10*3/uL (0.00-0.03); Imm Gran Pct Auto 0.5 % (0.0-0.4); Lymphocytes Absolute Auto 2.4 X10*3/uL (1.2-4.9); Lymphocytes Percent Auto 28.8 % (20-40); Mean Corpuscular HGB Conc 35.8 g/dl (31.0-36.0); Mean Corpuscular Hemoglobin 32.8 pg (27.0-33.0); Mean Corpuscular Volume 91.4 fL (80.0-98.0); Mean Platelet Volume 9.4 fL (9.4-12.4); Monocytes Absolute Auto 0.5 X10*3/uL (0.1-1.2); Neutrophils Absolute Auto 5.3 x10*3/uL (2.0-8.3); Neutrophils Percent Auto 62.6 % (45-73); Platelet Count 188 X10*3/uL (160-400); Red Blood Count 4.67 X10*6/uL (4.60-5.80); Red Cell Distribution Width 11.3 % (11.0-16.0); White Blood Count 8.4 X10*3/uL (4.8-10.8)
[2023-05-13 07:07] LABS: Anion Gap 13 (12-20); Blood Urea Nitrogen 13 mg/dL (9-16); Calcium 9.4 mg/dL (8.4-10.2); Carbon Dioxide 24 mmol/L (22-29); Chloride 103 mmol/L (96-108); Creatinine Clr Calc Pharmacy 115.8; Estimated Glomerular Filt Rate > 60; Glucose Random 309 mg/dL (60-115); Potassium 3.4 mmol/L (3.3-5.1); Sodium 137 mmol/L (135-145)
[2023-05-13 07:16] LABS: Troponin-I High Sensitivity < 2.7 ng/L (<3.5-35.0)
--- NOTE | 2023-05-13 09:16 | PC.NURSE ---
PT BROUGHT IN FROM , HE IS EATING A [employer] BREAKFAST AND COFFEE WITHOUT ANY OUTWARD SIGNS OF DISTRESS. AWAITING PROVIDER
--- NOTE | 2023-05-13 09:22 | ED.CHESTPAIN ---
HPI - Chest Pain General Chief Complaint: Chest Pain Stated Complaint: Chest Pain Time Seen by Provider: 05/13/23 09:22 Source: patient Mode of arrival: ambulatory Limitations: no limitations History of Present Illness HPI narrative: Open speech He denied fever, chills, cough, shortness of breath, dyspnea on exertion, nausea, vomiting or diarrhea. Patient's outpatient laboratory evaluation did reveal an elevated glucose of 310 an elevated hemoglobin A1c of 9.8 which is consistent with new onset diabetes. LFTs were normal. His triglycerides, total cholesterol, LDL or high in his HDL was low. TSH was normal. Urinalysis was positive for glucose but negative for protein. Related Data Previous Rx's Medication Instructions Recorded quetiapine 100 mg tablet 100 mg PO BEDTIME #90 tabs 04/24/20 fluticasone propionate 50 2 spray intranasal DAILY #48 mL 10/12/22 mcg/actuation nasal spray,suspension loratadine 10 mg tablet 10 mg PO DAILY PRN for allergies 04/09/23 #90 tabs trazodone 50 mg tablet 50 mg PO BEDTIME PRN insomnia 30 04/09/23 days #30 tabs zolpidem 10 mg tablet 10 mg PO BEDTIME PRN sleep #30 tabs 04/15/23 clonazepam 1 mg tablet 1 mg PO TID PRN anxiety 28 days 04/21/23 #84 tabs albuterol sulfate 90 mcg/actuation 2 puff inhalation Q6H PRN for 05/09/23 aerosol inhaler wheezing #8.5 grams tramadol 50 mg tablet 50 mg PO QID PRN pain 28 days #112 05/09/23 tabs Allergies Allergy/AdvReac Type Severity Reaction Status Date / Time No Known Allergies Allergy Verified 05/13/23 07:15 [No Known Allergies*] Review of Systems Review of Systems: Yes all other systems are reviewed and are negative [facility] Past Medical History [facility] Narrative: Social history: The patient smokes 2-3 cigarettes per day times 20 years. He rarely drinks alcohol and he was not drinking alcohol last night at the [facility] [place] [facility] [employer]. He denies drug use. Medical History Allergic rhinitis Hyperpigmented skin lesion Obesity (BMI 30-39.9) Smoker Depression Anxiety Insomnia Degenerative arthritis of thoracic spine Asthma Elevated LFTs Pure hypercholesterolemia Surgical History No pertinent past surgical history Family History Family History Father Cancer Mother Medical history unknown Son No problems noted. Daughter No problems noted. Daughter No problems noted. Sister No problems noted. Brother No problems noted. Social History Social History Housing: Apartment Alcohol intake: current Alcohol intake frequency: holidays/special occasions only Patient Tobacco Use Status: Current everyday Tobacco user Tobacco use type: Cigarette Cigarettes Per Day: 3 Smoked in Last 30 Days: Yes e-Cigarette/Vaping Use: Never Used Second Hand Smoke Exposure: Yes Use of substances other than those prescribed or required for medical reasons: No Advance Directives: No Advance Directives Information Provided: No service: No Current occupational status: disabled Cognitive needs: No Hearing needs: No Vision needs: No Physical Exam Vital Signs: Vital Signs: Last Vital Signs Temp 97.8 F 05/13/23 09:42 Pulse 73 05/13/23 09:42 Resp 16 05/13/23 09:42 BP 122/84 05/13/23 09:42 Pulse Ox 97 05/13/23 09:42 O2 Del Method Room Air 05/13/23 09:42 BMI result Body Mass Index 30.4 Vital signs were no Exam General: Awake, alert in no distress Head: Normocephalic, atraumatic EENT: PERRL, Lids normal, sclera normal, conjunctiva normal, nose normal , ears normal, throat without erythema or exudates Neck: Supple, no adenopathy, no trachea midline or C-spine tenderness Lung: breath sounds symmetric, no wheezing, rales or rhonchi Chest: symmetric movement, nontender Heart: regular rate and rhythm, normal S1, S2 no murmurs or rubs Abdomen: soft, non-tender, nondistended, normal bowel sounds Back: no vertebral tenderness, no CVAT Extremities: no deformities, moves all extremities symmetrically. Patient's left upper extremity appears to be normal with no swelling, erythema, no pain with full range of motion, normal strength, neurovascular intact. Neuro: Awake, alert, oriented, normal speech, cranial nerves intact, moves all extremities symmetrically Psych: Pleasant, cooperative Medications Administered Discontinued Medications Generic Name Dose Route Start Last Admin Trade Name Rikyq PRN Reason Stop Dose Admin Sodium Chloride 1,000 mls @ 999 mls/hr 05/13/23 09:48 05/13/23 11:16 Ns IV 05/13/23 10:48 Infused .Q1H1M STA Infusion Sodium Chloride 1,000 mls @ 999 mls/hr 05/13/23 09:48 05/13/23 12:35 Ns IV 05/13/23 10:48 Infused .Q1H1M STA Infusion Medical Decision Making Medical Decision Making [facility] Narrative: 53-year-old male with a history of hyperlipidemia, asthma, depression, anxiety who presents emergency department for evaluation constant left upper extremity pain x3 weeks and an intermittent left-sided chest pain with an episode that occurred this morning at 01:00 hours. Patient's review of systems was positive for increased thirst, urinary frequency, blurred vision and unintentional 25 lb weight loss over 3 months. Patient's vital signs were normal. Patient's physical examination was unremarkable. Differential diagnosis: includes but is not limited to myocardial infarction, myocardial ischemia, musculoskeletal pain, costochondritis, radiculopathy, upper extremity DVT, occult fracture, bony abnormality, new onset diabetes Following evaluation was ordered: CBC, BMP, troponin now and troponin intact hours, chest x-ray two view, left forearm two view, duplex ultrasound left upper extremity Patient was treated with the following: IV insert, normal saline x2 L 12:38 My interpretation patient's laboratory evaluation is as follows: CBC was normal. BMP revealed an elevated glucose of 309. Times 0 troponin was below detectable limit and time 3 hour troponin was also below detectable limits was reassuring. As per the HPI the patient has an elevated hemoglobin A1c suggests that has new onset diabetes. Patient's duplex ultrasound left upper extremity was unremarkable and patient's left forearm x-ray did not reveal acute cause for his left arm pain. Repeat point of care glucose was 335. Patient will be discharged and he was advised to appointment today to follow-up with his PCP I did send a tiger text to his PCP, Dr. Pal to inform him of the patient's ED workup. Admission/Observation Consideration of admission/observation: Escalation of care including admission/observation considered Lab Data [facility] Lab Attestation statement: I reviewed the patient's lab results. 05/13/23 06:50 05/13/23 06:50 Labs: Lab Results 05/13/23 05/13/23 05/13/23 Range/Units 06:50 10:07 12:32 WBC 8.4 (4.8-10.8) X10*3/uL RBC 4.67 (4.60-5.80) X10*6/uL Hgb 15.3 (14.0-18.0) g/dl Hct 42.7 (42.0-52.0) % MCV 91.4 (80.0-98.0) fL MCH 32.8 (27.0-33.0) pg MCHC 35.8 (31.0-36.0) g/dl RDW 11.3 (11.0-16.0) % Plt Count 188 (160-400) X10*3/uL MPV 9.4 (9.4-12.4) fL Immature Gran % (Auto) 0.5 H (0.0-0.4) % Neut % (Auto) 62.6 (45-73) % Lymph % (Auto) 28.8 (20-40) % [place] % (Auto) 6.0 (2-11) % Eos % (Auto) 1.5 (0-4) % Baso % (Auto) 0.6 (0-2) % Lymph # (Auto) 2.4 (1.2-4.9) X10*3/uL [place] # (Auto) 0.5 (0.1-1.2) X10*3/uL Eos # (Auto) 0.1 (0.0-0.4) X10*3/uL Baso # (Auto) 0.1 (0.0-0.2) X10*3/uL Abs Immat Gran (auto) 0.04 H (0.00-0.03) X10*3/uL Absolute Neuts (auto) 5.3 (2.0-8.3) x10*3/uL Absolute Nucleated RBC 0.000 (0.0-0.012) X10*3/uL Nucleated RBC % (auto) 0.0 (0.0-0.2) /100WBC Sodium 137 (135-145) mmol/L Potassium 3.4 (3.3-5.1) mmol/L Chloride 103 (96-108) mmol/L Carbon Dioxide 24 (22-29) mmol/L Anion Gap 13 (12-20) BUN 13 (9-16) mg/dL Creatinine 0.92 (0.5-1.4) mg/dL Estim Creat Clear Calc 115.8 Estimated GFR > 60 POC Glucose 335 H (60-115) mg/dL Random Glucose 309 H (60-115) mg/dL Calcium 9.4 (8.4-10.2) mg/dL Troponin I High Sens < 2.7 < 2.7 (<3.5-35.0) ng/L Independent Interpretation I performed an independent interpretation of an: EKG and Plain X-Ray Interpretation: My interpretation patient's 12 EKG done at 06:42 hours is as follows: Normal sinus rhythm rate of 75, normal LA interval, QRS duration QTC interval, no ST segment elevation, no ST segment depression, no PACs, no PVCs, no T-wave abnormalities, compared to EKG dated 02/05/2016 there is no significant change My interpretation patient's two view forearm x-ray is as follows: No acute fracture or other significant abnormalities Radiology Impression Discussion of test interpretation with radiology: I have reviewed the radiologist's reading. Radiologist Impression: XR chest 2V IMPRESSION: No evidence of acute disease. Dictated By: Jesús Hay MD US venous duplex UE LT IMPRESSION: No DVT demonstrated in the left upper extremity Dictated By: Brenda Cocnepcion MD Discharge Plan Discharge Clinical Impression: Diabetes mellitus, new onset, Chest pain, Arm pain, left Patient Disposition: Home, Self-Care Additional Instructions: Your blood work is consistent with a high blood sugar and new onset diabetes Your EKG was normal You had 2 troponins which were below detectable limits, this is reassuring, troponin is a marker of heart attack and since you have no troponin your blood this suggests that your pain was not secondary to a heart attack or heart injury. The ultrasound of your left arm did not reveal any blood clot to explain your pain. Your x-ray of your forearm also was normal. Keep your appointment today with your primary care doctor, Dr. Pal so that he can treat your new onset diabetes Follow-up with your doctor in 2 days. Please return to the emergency department if your symptoms get worse or if you develop any symptoms that are concerning to you. Prescriptions: No Action quetiapine 100 mg tablet 100 mg PO BEDTIME Qty: 90 1RF fluticasone propionate 50 mcg/actuation spray,suspension 2 spray intranasal DAILY Qty: 48 1RF trazodone 50 mg tablet 50 mg PO BEDTIME PRN (Reason: insomnia) 30 Days Qty: 30 2RF loratadine 10 mg tablet 10 mg PO DAILY PRN (Reason: for allergies) Qty: 90 3RF zolpidem 10 mg tablet 10 mg PO BEDTIME PRN (Reason: sleep) Qty: 30 0RF clonazepam 1 mg tablet 1 mg PO TID PRN (Reason: anxiety) 28 Days Qty: 84 0RF tramadol 50 mg tablet 50 mg PO QID PRN (Reason: pain) 28 Days Qty: 112 0RF albuterol sulfate 90 mcg/actuation HFA aerosol inhaler 2 puff inhalation Q6H PRN (Reason: for wheezing) Qty: 8.5 5RF
[2023-05-13 09:42] VITALS: BP 122/84; PULSE 73; RESP 16; TEMP 36.6; O2SAT 97
--- NOTE | 2023-05-13 09:44 | PC.NURSE ---
Pt alert and oriented, breathing even and unlabored. Skin warm and dry. Pt reports left sided chest pain radiating to left arm, aching, 8/10 for 2-3 weeks. Pt also reports other symptoms of increased thirst, urination, blurred vision, wt loss and fatigue over last couple of months. Pt denies any SOB, vomiting, diarrhea, fevers, cough or recent injuries. No acute resp distress at this time, pt resting in bed.
[2023-05-13] MEDS: 0.9 % Sodium Chloride 1,000 ML 999 ML IV ×2 (10:08→11:16)
--- NOTE | 2023-05-13 10:15 | PC.NURSE ---
IV established in the left AC 18G. Normal saline infusing per MAR. No new complaints, resting in bed.
[2023-05-13 10:41] LABS: Troponin-I High Sensitivity < 2.7 ng/L (<3.5-35.0)
--- NOTE | 2023-05-13 11:45 | PC.NURSE ---
Pt resting in bed, no apparent distress. Pt reports pain is the same. Normal saline infusing.
[2023-05-13 12:36] LABS: Glucose, Whole Blood 335 mg/dL (60-115)
[2023-05-13 12:59] VITALS: BP 122/78; PULSE 65; RESP 16; TEMP 36.5; O2SAT 97
== END 2023-05-13 13:00 | disposition home or self-care (01) ==
PROVIDERS: Emergency Provider Emergency Medicine Emergency Medical Services; PCP Internal Medicine
DX: R07.89 Other chest pain (principal); M79.602 Pain in left arm; R60.0 Localized edema; E11.9 Type 2 diabetes mellitus without complications; F17.210 Nicotine dependence, cigarettes, uncomplicated; Z79.899 Other long term (current) drug therapy
CPT/HCPCS: 36415; 71046; 73090; 80048; 82947; 84484; 85025; 93005; 93971; 96360; 96361; 99284; 99285

== ENCOUNTER → 2023-05-13 06:40 | Outpatient (BNV) | payer OTHER, SELFPAY | PROVIDERS: Emergency Provider Emergency Medicine Emergency Medical Services; PCP Internal Medicine; Visit Provider Internal Medicine Cardiovascular Disease | DX: R07.9 Chest pain, unspecified (principal) | CPT/HCPCS: 93010 ==

== ENCOUNTER 2023-05-13 14:12 | Outpatient (AMB) | payer OTHER, SELFPAY ==
[2023-05-13 14:17] VITALS: BP 136/84; PULSE 84; O2SAT 98; BMI 31.2
--- NOTE | 2023-05-13 14:17 | MHC.PC.OV ---
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: No Accompanied by: Self / Same As Patient Allergies No Known Allergies [No Known Allergies*] Allergy (Verified 12/12/23 16:42) Medication List - Last Reconciled 05/13/23 by Jon Pal MD albuterol sulfate 90 mcg/actuation 2 puffs inhalation Q6H PRN clonazepam 1 mg PO TID PRN 28 days fluticasone propionate 50 mcg/actuation 2 sprays intranasal DAILY loratadine 10 mg PO DAILY PRN quetiapine 100 mg PO BEDTIME tramadol 50 mg PO QID PRN 28 days trazodone 50 mg PO BEDTIME PRN 30 days zolpidem 10 mg PO BEDTIME PRN Tobacco use date assessed: 05/13/23 Dental Screening Dental Screen Date: 05/13/23 Did you have a dental visit in the last 12 months?: Yes Did you have a dental problem in the last 6 months where you did not have access to dental care?: No Was dental information given to patient?: Patient has dentist HPI 3 month f/u HPI Details Patient comes in today for his follow up visit Relates increased fatigue - states that he was up since 5 AM this morning as he went to the ER complaining of recurrent left arm pain and left-sided chest pains and was concerned that he was having a heart attack at the time Work ups done in the ER revealed elevated blood sugar and HgbA1c, consistent with diabetes (newly-diagnosed); he was reportedly advised that his cardiac work ups came back normal and was subsequently sent home from the ER Patient also reports (+) recent significant weight loss and that he has been feeling thirsty frequently lately, in addition to his fatigue Relates also (+) polyuria but he was attributing that to his drinking a lot of fluids/water recently He currently denies any headaches or dizziness Denies any increased SOB and states that his chest pains from this morning seem to have subsided No nausea/vomiting, no abdominal pain No change in bowel habits noted Needs his Zolpidem Rx refilled Had his follow up labs done earlier this morning - to discuss his results REPLACED BY [facility] Medical History (Updated 12/14/23 @ 01:06 by Jon Pal MD) Mixed hyperlipidemia Vitamin D deficiency Type 2 diabetes mellitus with hyperglycemia, without long-term current use of insulin Allergic rhinitis Obesity (BMI 30-39.9) Smoker Depression Anxiety Insomnia Degenerative arthritis of thoracic spine Asthma Elevated LFTs Pure hypercholesterolemia Surgical History No pertinent past surgical history Family History Father Cancer Mother Medical history unknown Son No problems noted. Daughter No problems noted. Daughter No problems noted. Sister No problems noted. Brother No problems noted. Social History Housing: Apartment Alcohol intake: current Alcohol intake frequency: holidays/special occasions only Patient Tobacco Use Status: Current everyday Tobacco user Tobacco use type: Cigarette Cigarettes Per Day: 3 e-Cigarette/Vaping Use: Never Used Second Hand Smoke Exposure: Yes service: No Current occupational status: disabled Cognitive needs: No Hearing needs: No Vision needs: No Questionnaire PHQ-9 Over the last 2 weeks, how often have you been bothered by any of the following problems? 1. Little interest or pleasure in doing things: not at all 2. Feeling down, depressed, or hopeless: several days 3. Trouble falling or staying asleep, or sleeping too much: several days 4. Feeling tired or having little energy: several days 5. Poor appetite or overeating: not at all 6. Feeling bad about yourself - or that you are a failure or have let yourself or your family down: not at all 7. Trouble concentrating on things, such as reading the newspaper or watching television: not at all 8. Moving or speaking so slowly that other people could have noticed. Or the opposite - being so fidgety or restless that you have been moving around a lot more than usual: not at all 9. Thoughts that you would be better off or of hurting yourself in some way: not at all Total score: 3 Depression Screening Interpretation: Positive Depression Screening Follow-up: Existing condition and In treatment Depression Screening Done: Yes 76254 - PHQ-9 Billing: Yes Source: Developed by Drs. Gerardo Anaya, Leah Stevenson, Stevo Arevalo and colleagues, with an educational lopez from [employer]. Thrive Questionnaire Date Thrive assessed: 05/13/23 I am a: Patient What is your living situation today?: I have a steady place to live Within the past 12 months, did the food you bought not last and you didn't have the money to get more?: Never true Within the past 12 months, did you worry whether your food would run out before you got money to buy more?: Never true Do you have trouble paying for medicines?: No Do you have trouble getting transportation to medical appointments?: No Do you have trouble paying your heating and electricity bill?: No Do you have trouble taking care of your child, family member or friend?: No Do you have trouble with day-to-day activities such as bathing, preparing meals, shopping, managing finances, etc.?: No Are you currently unemployed and looking for a job?: No Are you interested in more education?: No Please select the resources that you would like help with: None Currently or been in a relationship where the following occur: no concerns reported THRIVE Score: 0 AUDIT C Alcohol Use Questionnaire (AUDIT-C) 1. How often do you have a drink containing alcohol?: Monthly or less 2. How many drinks containing alcohol do you have on a typical day when you are drinking?: 1 or 2 3. How often do you have six or more drinks on one occasion?: Never Total Score: 1 Score Reviewed/Action Taken: Yes KATH-7 AMB Questionnaire KATH-7 Date KATH - 7 assessed: 05/13/23 Feeling nervous, anxious, or on edge: 1 = Several days Not being able to stop or control worryin = Not at all Worrying too much about different things: 0 = Not at all Trouble relaxin = Not at all Being so restless that it is hard to sit still: 0 = Not at all Becoming easily annoyed or irritable: 0 = Not at all Feeling afraid as if something awful might happen: 0 = Not at all Total KATH-7 score (0-4 normal; 5-9 mild; 10-14 moderate; 15-21 severe): 1 Source: Developed by Drs. Gerardo Anaya, Leah Stevenson, Stevo Arevalo and colleagues, with an educational lopez from [employer]. Review of Systems Const Denies chills, Reports difficulty sleeping (Zolpidem Rx helps), Reports fatigue, Denies fever(s), Denies headache(s), Reports increased appetite and Reports weight loss ENT Denies dysphagia, Denies dizziness, Reports dry mouth, Denies otalgia, Denies headache(s), Denies neck pain, Denies odynophagia and Denies sore throat Card Denies chest pain, Denies palpitations and Reports dyspnea on exertion (mild, at times) Resp Denies cough, Reports dyspnea on exertion (mild, at times) and Denies wheezing GI Denies abdominal pain, Denies constipation, Denies dysphagia, Denies heartburn, Denies diarrhea, Denies nausea, Denies odynophagia and Denies vomiting Denies hematuria, Denies dysuria, Reports nocturia and Reports urinary frequency Musc Details: (+) recurrent right hand pain Reports back pain (over the lower thoracic and lumbar spine - chronic) and Denies neck pain Skin/Breast Denies rash Neuro Denies dizziness and Denies headache(s) Endo Reports fatigue, Reports polydipsia and Denies palpitations Aller/Immun Denies wheezing Physical exam (Primary Care) Vital Signs: Last Vital Signs Pulse 84 05/13/23 14:17 BP 136/84 05/13/23 14:17 Pulse Ox 98 05/13/23 14:17 Oxygen Delivery Method Room Air 05/13/23 14:17 BMI result Body Mass Index 31.2 Tobacco/Smoking Status: Tobacco use Status Tobacco use date assessed 05/13/23 05/13/23 14:19 Patient Tobacco Use Status Current everyday Tobacco 05/13/23 14:19 Tobacco use type Cigarette 05/13/23 14:19 e-Cigarette/Vaping Use Never Used 05/13/23 14:19 PHQ-9: PHQ-9 Score PHQ-9: Total score 3 05/13/23 15:28 Depression Screening Interpretation: Positive Depression Screening Follow-up: Existing condition and In treatment Thrive Assessment: Date of Thrive Assessment Date Thrive assessed 05/13/23 05/13/23 14:19 Currently or been in a relationship where the following occur: no concerns reported Const General: no acute distress and alert HENMT Ears: TM's normal bilaterally and EAC's normal Throat: Yes posterior oropharynx normal and Yes tonsils normal (no TP congestion noted) Neck Neck: Yes no lymphadenopathy and Yes supple Thyroid: Thyroid normal Resp Auscultation: clear to auscultation bilaterally, no rales and no wheezes Cardio Rate: regular rate Rhythm: regular rhythm Heart sounds: no murmurs GI Palpation (GI): Soft to palpation and nontender Auscultation: normal bowel sounds General: Yes no CVA tenderness Back/Spine/Pelvis Back: no CVA tenderness Thoracic/Lumbar Spine: thoracic spinal tenderness (lower thoracic) and lumbar spinal tenderness Skin Rashes: no rashes Extrem General: Yes no clubbing, cyanosis or edema Results Reviewed Results Reviewed: Laboratory Tests 12/07/20 05/13/23 05/13/23 11:35 06:24 06:29 WBC 9.1 Hgb Hct Plt Count 181 Sodium 140 Potassium 4.2 Creatinine 1.01 Estimated GFR Fasting Glucose 310 H Hemoglobin A1c % 9.8 H Calcium AST ALT Triglycerides Cholesterol LDL Cholesterol, Calc HDL Cholesterol Prostate Specific Ag 25-OH Vitamin D Total TSH Ur Specific [place] 1.025 Urine Protein Negative Urine Glucose (UA) >=1000 H Urine Blood Negative Urine Nitrite Negative Ur Leukocyte Esterase Negative 05/13/23 05/13/23 05/13/23 06:29 06:50 06:50 WBC 8.4 Hgb 15.3 Hct 42.7 Plt Count 188 Sodium 137 Potassium 3.4 Creatinine 0.92 Estimated GFR > 60 Fasting Glucose Hemoglobin A1c % Calcium 9.4 AST 18 ALT 27 Triglycerides 299 H Cholesterol 232 H LDL Cholesterol, Calc 138 H HDL Cholesterol 35 L Prostate Specific Ag 1.43 25-OH Vitamin D Total 17.6 L TSH 3.13 Ur Specific [place] Urine Protein Urine Glucose (UA) Urine Blood Urine Nitrite Ur Leukocyte Esterase Assessment and Plan Assessment & Plan (1) Diabetes mellitus, new onset: Code(s): E11.9 - Type 2 diabetes mellitus without complications Plan: Patient is advised that his labs from the ER earlier this morning, especially his FBS of 310 mg/dl and HgbA1c of 9.8%, are consistent with diabetes Discussed diabetic diet Will start him on Metformin 500 mg BID (2) Mixed hyperlipidemia: Code(s): E78.2 - Mixed hyperlipidemia Plan: Patient is also advised that his cholesterol levels were still elevated when checked earlier today, with his total cholesterol at 232 mg/dl, LDL cholesterol at 138 mg/dl and serum triglyceride level at 299 mg/dl - goal is LDL cholesterol <70 mg/dl due to him being a diabetic Reinforced low cholesterol diet Will start him on Atorvastatin 10 mg QD for now Will have him recheck his labs and fasting lipids in 3 months for follow up (3) Elevated LFTs: Code(s): R79.89 - Other specified abnormal findings of blood chemistry Plan: Abdominal US done a couple of years ago revealed (+) hepatosteatosis and also (+) cholelithiasis with NO evidence of cholecystitis or obstruction; also (+) small left renal simple cyst Advised that his elevated LFTs were most likely related to his weight and he should continue to avoid alcohol as well as Tylenol-containing meds His LFTs were normal on his labs done earlier today Will continue to monitor his LFTs regularly and recheck his LFTs in 3 months for follow up (4) Asthma: Code(s): J45.909 - Unspecified asthma, uncomplicated Qualifiers: Asthma severity: mild Asthma persistence: intermittent Asthma complication type: uncomplicated Qualified Code(s): J45.20 - Mild intermittent asthma, uncomplicated Plan: Stable Continue Albuterol HFA 2 puffs 4 times a day as needed (5) Allergic rhinitis: Code(s): J30.9 - Allergic rhinitis, unspecified Qualifiers: Allergic rhinitis trigger: unspecified Allergic rhinitis seasonality: seasonal Qualified Code(s): J30.2 - Other seasonal allergic rhinitis Plan: Continue Fluticasone 50 mcg nasal spray QD PRN and Loratadine 10 mg QD PRN (6) Vitamin D deficiency: Code(s): E55.9 - Vitamin D deficiency, unspecified Plan: Will start him also on Vitamin D3 2000 units QD as his Vitamin D level was very low on his labs done earlier today (7) Degenerative arthritis of thoracic spine: Code(s): M47.814 - Spondylosis without myelopathy or radiculopathy, thoracic region Qualifiers: Spinal osteoarthritis complication: without myelopathy or radiculopathy Qualified Code(s): M47.814 - Spondylosis without myelopathy or radiculopathy, thoracic region Plan: Reinforced activity and weight-lifting restrictions Continue Tramadol 50 mg TID PRN (8) Insomnia: Code(s): G47.00 - Insomnia, unspecified Qualifiers: Insomnia type: unspecified Qualified Code(s): G47.00 - Insomnia, unspecified Plan: Sleep hygiene reinforced States that his Quetiapine was helping with his sleep at night in the past but no longer Continue Trazodone 50 mg Q HS PRN and Zolpidem 10 mg Q HS PRN although have advised patient that he should decide which of these 2 works best for him as he should not really be taking both Trazodone and Zolpidem at the same time (9) Anxiety: Code(s): F41.9 - Anxiety disorder, unspecified Plan: Continue Clonazepam 1 mg TID PRN (10) Depression: Code(s): F32.9 - Major depressive disorder, single episode, unspecified Qualifiers: Depression Type: unspecified Qualified Code(s): F32.9 - Major depressive disorder, single episode, unspecified Plan: Continue Quetiapine 100 mg Q HS Follow up with psychiatry as scheduled (11) Smoker: Code(s): F17.200 - Nicotine dependence, unspecified, uncomplicated Plan: Counseled again on smoking cessation States that he has been able to cut down his smoking and is now smoking only no more than 3 cigarettes a day (12) Obesity (BMI 30-39.9): Code(s): E66.9 - Obesity, unspecified Plan: Reinforced diet/exercise as tolerated/lose weight Plan Follow up in 3 months Orders: Orders Comprehensive Switzer. Panel Fast 3 Months E78.00 - Pure hypercholesterolemia, unspecified TSH reflex Free T4 3 Months E78.00 - Pure hypercholesterolemia, unspecified Microalbumin, Random (w Creat) 3 Months E11.9 - Type 2 diabetes mellitus without complications Vitamin D 25-OH Total 3 Months E55.9 - Vitamin D deficiency, unspecified Hemoglobin A1c 3 Months E11.9 - Type 2 diabetes mellitus without complications Complete Blood Count Auto Diff 3 Months D64.9 - Anemia, unspecified Lipid Panel 3 Months E78.00 - Pure hypercholesterolemia, unspecified UA CC w/rflx Micro + Cult 3 Months R30.0 - Dysuria Medications: New metformin 500 mg PO BID 60 tabs 3RF atorvastatin 10 mg PO BEDTIME 30 tabs 3RF cholecalciferol (vitamin D3) 50 mcg PO DAILY 90 caps 3RF 90 days E55.9 - Vitamin D deficiency, unspecified Refilled zolpidem 10 mg PO BEDTIME PRN 30 tabs 1RF sleep Coding Level of Care Code Est Pt Level 4 (00403) Complex EM visit Add On G2211 Diagnoses Diabetes mellitus, new onset E11.9 Mixed hyperlipidemia E78.2 Elevated LFTs R79.89 Mild intermittent asthma without complication J45.20 Asthma severity: mild Asthma persistence: intermittent Asthma complication type: uncomplicated Seasonal allergic rhinitis, unspecified trigger J30.2 Allergic rhinitis trigger: unspecified Allergic rhinitis seasonality: seasonal Vitamin D deficiency E55.9 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 Spinal osteoarthritis complication: without myelopathy or radiculopathy Insomnia, unspecified type G47.00 Insomnia type: unspecified Anxiety F41.9 Depression, unspecified depression type F32.9 Depression Type: unspecified Smoker F17.200 Obesity (BMI 30-39.9) E66.9
== END 2023-05-13 15:18 | disposition home or self-care (01) ==
PROVIDERS: PCP Internal Medicine; Visit Provider Internal Medicine
DX: E11.9 Type 2 diabetes mellitus without complications (principal); E78.2 Mixed hyperlipidemia; R79.89 Other specified abnormal findings of blood chemistry; J45.20 Mild intermittent asthma, uncomplicated; J30.2 Other seasonal allergic rhinitis; E55.9 Vitamin D deficiency, unspecified; M47.814 Spondylosis without myelopathy or radiculopathy, thoracic region; G47.00 Insomnia, unspecified; F41.9 Anxiety disorder, unspecified; F32.9 Major depressive disorder, single episode, unspecified; F17.200 Nicotine dependence, unspecified, uncomplicated; E66.9 Obesity, unspecified
CPT/HCPCS: 99499

== ENCOUNTER 2023-12-12 15:57 | Outpatient (AMB) | payer OTHER, SELFPAY ==
[2023-12-12 15:58] VITALS: BP 144/92; PULSE 90; O2SAT 95; BMI 32.7
--- NOTE | 2023-12-12 15:58 | MHC.PC.OV ---
Vital Signs 12/12/23 15:58 12/12/23 16:52 Height 6 ft Weight 241 lb 6 oz BMI 32.7 BP 144/92 H 140/92 H Blood Pressure Location Lt brachial Lt brachial Position Sitting Sitting Pulse 90 Pulse Source Pulse Oximeter Pulse Oximetry (%) 95 Oxygen Delivery Method Room Air Intake Visit Reasons: annual exam/med visit Vehicle And Equipment Cleaner Required: No Accompanied by: Self / Same As Patient Allergies No Known Allergies [No Known Allergies*] Allergy (Verified 12/12/23 16:42) Medication List - Last Reconciled 12/12/23 by Jon Pal MD albuterol sulfate 90 mcg/actuation 2 puffs inhalation Q6H PRN atorvastatin 10 mg PO BEDTIME cholecalciferol (vitamin D3) 50 mcg PO DAILY 90 days clonazepam 1 mg PO TID PRN 28 days fluticasone propionate 50 mcg/actuation 2 sprays intranasal DAILY loratadine 10 mg PO DAILY PRN metformin 500 mg PO BID quetiapine 100 mg PO BEDTIME tramadol 50 mg PO QID PRN 28 days trazodone 50 mg PO BEDTIME PRN 30 days zolpidem 10 mg PO BEDTIME PRN Tobacco use date assessed: 12/12/23 Dental Screening Dental Screen Date: 12/12/23 Did you have a dental visit in the last 12 months?: Yes Did you have a dental problem in the last 6 months where you did not have access to dental care?: No Was dental information given to patient?: Patient has dentist HPI annual exam/med visit HPI Details Patient comes in today for his annual physical examination States that he currently has a painful ingrown toenail on his left big toe that he has been dealing with for a while now and would like to get a referral to podiatry to have this taken care of Relates that he had a similar issue on his right big toe last year and he had to have part of his toenail removed at the time States that he feels okay otherwise He denies any headaches or dizziness Denies any exertional chest pains, no SOB No nausea/vomiting, no abdominal pain No change in bowel habits noted He denies any acute urinary symptoms He was not able to get his follow up labs done recently - states that he will try to get them done ANGELI He also has never had a screening colonoscopy done in the past [facility] Medical History (Updated 12/13/23 @ 03:22 by Jon Pal MD) Vitamin D deficiency Type 2 diabetes mellitus with hyperglycemia, without long-term current use of insulin Allergic rhinitis Obesity (BMI 30-39.9) Smoker Depression Anxiety Insomnia Degenerative arthritis of thoracic spine Asthma Elevated LFTs Pure hypercholesterolemia Surgical History No pertinent past surgical history Family History Father Cancer Mother Medical history unknown Son No problems noted. Daughter No problems noted. Daughter No problems noted. Sister No problems noted. Brother No problems noted. Social History Housing: Apartment Alcohol intake: current Alcohol intake frequency: holidays/special occasions only Patient Tobacco Use Status: Current everyday Tobacco user Tobacco use type: Cigarette Cigarettes Per Day: 3 e-Cigarette/Vaping Use: Never Used Second Hand Smoke Exposure: Yes service: No Current occupational status: disabled Cognitive needs: No Hearing needs: No Vision needs: No Questionnaire PHQ-9 Over the last 2 weeks, how often have you been bothered by any of the following problems? 1. Little interest or pleasure in doing things: not at all 2. Feeling down, depressed, or hopeless: several days 3. Trouble falling or staying asleep, or sleeping too much: several days 4. Feeling tired or having little energy: several days 5. Poor appetite or overeating: not at all 6. Feeling bad about yourself - or that you are a failure or have let yourself or your family down: not at all 7. Trouble concentrating on things, such as reading the newspaper or watching television: not at all 8. Moving or speaking so slowly that other people could have noticed. Or the opposite - being so fidgety or restless that you have been moving around a lot more than usual: not at all 9. Thoughts that you would be better off or of hurting yourself in some way: not at all Total score: 3 Depression Screening Interpretation: Positive Depression Screening Follow-up: Existing condition and In treatment Depression Screening Done: Yes 50037 - PHQ-9 Billing: Yes Source: Developed by Drs. Gerardo Anaya, Leah Stevenson, Stevo Arevalo and colleagues, with an educational lopez from [employer]. Thrive Questionnaire Date Thrive assessed: 12/12/23 I am a: Patient What is your living situation today?: I choose not to answer this question Within the past 12 months, did the food you bought not last and you didn't have the money to get more?: I choose not to answer this question Within the past 12 months, did you worry whether your food would run out before you got money to buy more?: I choose not to answer this question Do you have trouble paying for medicines?: I choose not to answer this question Do you have trouble getting transportation to medical appointments?: I choose not to answer this question Do you have trouble paying your heating and electricity bill?: I choose not to answer this question Do you have trouble taking care of your child, family member or friend?: I choose not to answer this question Do you have trouble with day-to-day activities such as bathing, preparing meals, shopping, managing finances, etc.?: I choose not to answer this question Are you currently unemployed and looking for a job?: I choose not to answer this question Are you interested in more education?: I choose not to answer this question Please select the resources that you would like help with: None Currently or been in a relationship where the following occur: I choose not to answer THRIVE Score: 0 AUDIT C Alcohol Use Questionnaire (AUDIT-C) 1. How often do you have a drink containing alcohol?: Never Total Score: 0 KATH-7 AMB Questionnaire KATH-7 Date KATH - 7 assessed: 12/12/23 Feeling nervous, anxious, or on edge: 3 = Nearly every day Not being able to stop or control worryin = Nearly every day Worrying too much about different things: 3 = Nearly every day Trouble relaxin = More than half the days Being so restless that it is hard to sit still: 2 = More than half the days Becoming easily annoyed or irritable: 2 = More than half the days Feeling afraid as if something awful might happen: 2 = More than half the days Total KATH-7 score (0-4 normal; 5-9 mild; 10-14 moderate; 15-21 severe): 17 Source: Developed by Drs. Gerardo Anaya, Leah Stevenson, Stevo Arevalo and colleagues, with an educational lopez from [employer]. Review of Systems Const Denies chills, Denies fatigue, Denies fever(s), Denies headache(s), Denies malaise and Denies weakness Eyes Denies blurry vision, Denies change in vision, Denies irritation and Denies itchy eyes ENT Denies dysphagia, Denies dizziness, Denies otalgia, Denies headache(s), Denies nasal congestion, Denies neck pain, Denies odynophagia and Denies sore throat Card Denies chest pain, Denies rapid heart rate, Denies irregular heart rhythm, Denies palpitations and Denies dyspnea Resp Denies chest congestion, Denies cough, Denies dyspnea and Denies wheezing GI Denies abdominal pain, Denies bloating, Denies constipation, Denies dysphagia, Denies heartburn, Denies diarrhea, Denies nausea, Denies odynophagia and Denies vomiting Denies hematuria, Denies difficulty urinating, Denies dysuria, Denies urinary frequency and Denies urinary urgency Musc Reports back pain (chronic), Denies arthralgias, Denies joint swelling, Denies muscle weakness and Denies neck pain Skin/Breast Details: (+) painful ingrown toenail on the left big toe Denies change in pigmentation, Denies lesions, Denies rash and Denies unusual bruising Neuro Denies dizziness, Denies headache(s), Denies paresthesias and Denies weakness Endo Denies fatigue and Denies palpitations Aller/Immun Denies itchy eyes and Denies wheezing Physical exam (Primary Care) Vital Signs: Last Vital Signs Pulse 90 12/12/23 15:58 BP 140/92 H 12/12/23 16:52 Pulse Ox 95 12/12/23 15:58 Oxygen Delivery Method Room Air 12/12/23 15:58 BMI result Body Mass Index 32.7 Tobacco/Smoking Status: Tobacco use Status Tobacco use date assessed 12/12/23 12/12/23 16:04 Patient Tobacco Use Status Current everyday Tobacco 12/12/23 16:04 Tobacco use type Cigarette 12/12/23 16:04 e-Cigarette/Vaping Use Never Used 12/12/23 16:04 PHQ-9: PHQ-9 Score PHQ-9: Total score 3 12/12/23 16:44 Depression Screening Interpretation: Positive Depression Screening Follow-up: Existing condition and In treatment Thrive Assessment: Date of Thrive Assessment Date Thrive assessed 12/12/23 12/12/23 16:04 Currently or been in a relationship where the following occur: I choose not to answer Const General: no acute distress, alert and awake Orientation/consciousness: patient oriented x3 HENMT Head: Yes normocephalic and Yes atraumatic Ears: external ears normal, TM's normal bilaterally and EAC's normal General nose exam: No nasal discharge present Face and sinus: Yes normal facial exam and Yes sinuses nontender Teeth and gingiva: dentition normal Throat: Yes posterior oropharynx normal and Yes tonsils normal (no TP congestion) Eyes Eyelids: Yes eyelids normal Conjunctivae: conjunctivae normal Pupils: Equal, round and reactive pupils present EOM: EOMs intact bilaterally Neck Neck: Yes no lymphadenopathy and Yes supple Thyroid: Thyroid normal Resp Auscultation: clear to auscultation bilaterally, no rales and no wheezes Cardio Rate: regular rate Rhythm: regular rhythm Heart sounds: no murmurs GI Palpation (GI): Soft to palpation, nontender and No hepatosplenomegaly present Auscultation: normal bowel sounds General: Yes no CVA tenderness Back/Spine/Pelvis Back: no CVA tenderness Thoracic/Lumbar Spine: thoracic spinal tenderness and lumbar spinal tenderness Skin Lesions: no lesions Rashes: no rashes Neuro General: patient oriented x3, moves all extremities, no focal motor deficits and CN's II-XI intact bilaterally Cranial nerves: Yes Equal, round and reactive pupils present Cognition (Neuro): normal cognition Gait exam (Neuro): Normal gait present Extrem Other: (+) ingrown nail over the medial side of the left big toe, with tenderness on the side of the toe noted on exam General: Yes no clubbing, cyanosis or edema Results AMB Hemoglobin A1c AMB Hemoglobin A1c 6.2 % Last Edit by ROBY Vidal on 12/12/23 16:31 Results Reviewed Results Reviewed: Laboratory Last Values Hgb A1c (Clinic) 6.2 % (4.0-6.0) H 12/12/23 16:05 Assessment and Plan Assessment & Plan (1) Annual physical exam: Code(s): Z00.00 - Encounter for general adult medical examination without abnormal findings Plan: Check labs ANGELI - will just have patient use his current lab orders (updated) for his next blood draw Will include PSA screen to his lab orders He has never had a screening colonoscopy done in the past so will refer him to GI for this (2) Type 2 diabetes mellitus with hyperglycemia, without long-term current use of insulin: Code(s): E11.65 - Type 2 diabetes mellitus with hyperglycemia Plan: His in-office HgbA1c done today is at 6.2% (HgbA1c was previously at 9.8% when he was first diagnosed with diabetes back in April 2023) - goal is HgbA1c of 7.0% or less Reinforced diabetic diet Continue Metformin 500 mg BID (3) Pure hypercholesterolemia: Code(s): E78.00 - Pure hypercholesterolemia, unspecified Plan: Patient is reminded that his cholesterol levels were still elevated back in April 2023, with his LDL cholesterol at 138 mg/dl - goal is <70 mg/dl due to him being a diabetic Will have him recheck his fasting lipids ANGELI for follow up Reinforced low cholesterol diet Continue Atorvastatin 10 mg QD Will have him recheck his labs and fasting lipids in 4 months for follow up (4) Elevated LFTs: Code(s): R79.89 - Other specified abnormal findings of blood chemistry Plan: Abdominal US done a couple of years ago revealed (+) hepatosteatosis and also (+) cholelithiasis with NO evidence of cholecystitis or obstruction; also (+) small left renal simple cyst Advised that his elevated LFTs were most likely related to his weight and he should continue to avoid alcohol as well as Tylenol-containing meds His LFTs were normal when last checked in April 2023 Will recheck his LFTs ANGELI for follow up (5) Asthma: Code(s): J45.909 - Unspecified asthma, uncomplicated Qualifiers: Asthma severity: mild Asthma persistence: intermittent Asthma complication type: uncomplicated Qualified Code(s): J45.20 - Mild intermittent asthma, uncomplicated Plan: Stable Continue Albuterol HFA 2 puffs 4 times a day as needed (6) Allergic rhinitis: Code(s): J30.9 - Allergic rhinitis, unspecified Qualifiers: Allergic rhinitis trigger: unspecified Allergic rhinitis seasonality: seasonal Qualified Code(s): J30.2 - Other seasonal allergic rhinitis Plan: Continue Fluticasone 50 mcg nasal spray QD PRN and Loratadine 10 mg QD PRN (7) Vitamin D deficiency: Code(s): E55.9 - Vitamin D deficiency, unspecified Plan: Continue Vitamin D3 2000 units QD (8) Degenerative arthritis of thoracic spine: Code(s): M47.814 - Spondylosis without myelopathy or radiculopathy, thoracic region Qualifiers: Spinal osteoarthritis complication: without myelopathy or radiculopathy Qualified Code(s): M47.814 - Spondylosis without myelopathy or radiculopathy, thoracic region Plan: Reinforced activity and weight-lifting restrictions Continue Tramadol 50 mg TID PRN (9) Ingrown left big toenail: Code(s): L60.0 - Ingrowing nail Plan: Will refer him to podiatry for further evaluation and management (10) Insomnia: Code(s): G47.00 - Insomnia, unspecified Qualifiers: Insomnia type: unspecified Qualified Code(s): G47.00 - Insomnia, unspecified Plan: Sleep hygiene reinforced States that his Quetiapine was helping with his sleep at night in the past but no longer Continue Trazodone 50 mg Q HS PRN (11) Anxiety: Code(s): F41.9 - Anxiety disorder, unspecified Plan: Continue Clonazepam 1 mg TID PRN (12) Depression: Code(s): F32.9 - Major depressive disorder, single episode, unspecified Qualifiers: Depression Type: unspecified Qualified Code(s): F32.9 - Major depressive disorder, single episode, unspecified Plan: Continue Quetiapine 100 mg Q HS Follow up with psychiatry as scheduled (13) Smoker: Code(s): F17.200 - Nicotine dependence, unspecified, uncomplicated Plan: Counseled again on smoking cessation States that he has been able to cut down his smoking and is now smoking only no more than 3 cigarettes a day (14) Obesity (BMI 30-39.9): Code(s): E66.9 - Obesity, unspecified Plan: Reinforced diet/exercise as tolerated/lose weight (15) Colon cancer screening: Code(s): Z12.11 - Encounter for screening for malignant neoplasm of colon Plan: Will refer him to GI for screening colonoscopy - this should be his index screen as he has never had a colonoscopy done in the past Plan Follow up in 4 months Orders: Orders AMB Hemoglobin A1c 12/12/23 Z13.9 - Encounter for screening, unspecified Prostate Specific Antigen Scr 24 Z00.00 - Encounter for general adult medical examination without abnormal findings Lipid Panel 4 Months E78.00 - Pure hypercholesterolemia, unspecified TSH reflex Free T4 4 Months E78.00 - Pure hypercholesterolemia, unspecified UA CC w/rflx Micro + Cult 4 Months R30.0 - Dysuria Vitamin D 25-OH Total 4 Months E55.9 - Vitamin D deficiency, unspecified Vitamin B12 and Folate 4 Months E53.8 - Deficiency of other specified B group vitamins Complete Blood Count Auto Diff 4 Months D64.9 - Anemia, unspecified Comprehensive [place]. Panel Fast 4 Months E78.00 - Pure hypercholesterolemia, unspecified Microalbumin, Random (w Creat) 4 Months E11.9 - Type 2 diabetes mellitus without complications Hemoglobin A1c 4 Months E11.9 - Type 2 diabetes mellitus without complications Referrals Podiatry Referral L60.0 - Ingrowing nail Gastroenterology Referral Z12.11 - Encounter for screening for malignant neoplasm of colon Coding Level of Care Code Est Pt Prev Care 40-64y(31772) Diagnoses Annual physical exam Z00.00 Type 2 diabetes mellitus with hyperglycemia, without long-term current use of insulin E11.65 Pure hypercholesterolemia E78.00 Elevated LFTs R79.89 Mild intermittent asthma without complication J45.20 Asthma severity: mild Asthma persistence: intermittent Asthma complication type: uncomplicated Seasonal allergic rhinitis, unspecified trigger J30.2 Allergic rhinitis trigger: unspecified Allergic rhinitis seasonality: seasonal Vitamin D deficiency E55.9 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
[2023-12-12 16:52] VITALS: BP 140/92
== END 2023-12-12 16:54 | disposition home or self-care (01) ==
PROVIDERS: PCP Internal Medicine; Visit Provider Internal Medicine
DX: E11.9 Type 2 diabetes mellitus without complications (principal)
CPT/HCPCS: 83036; 99396

== ENCOUNTER → 2024-04-23 11:41 | Outpatient (BNVA) | payer OTHER, SELFPAY | PROVIDERS: PCP Internal Medicine ==

== ENCOUNTER 2024-10-11 06:55 | Outpatient (REF) | payer OTHER, SELFPAY ==
[2024-10-11 07:10] LABS: MANUAL DIFF FLAG NO
[2024-10-11 07:57] LABS: Basophils Percent Auto 0.5 % (0-2); Eosinophils Absolute Auto 0.2 X10*3/uL (0.0-0.4); Hematocrit 44.5 % (42.0-52.0); Hemoglobin 15.5 g/dl (14.0-18.0); Imm Gran Abs Auto 0.04 X10*3/uL (0.00-0.03); Imm Gran Pct Auto 0.5 % (0.0-0.4); Lymphocytes Absolute Auto 2.6 X10*3/uL (1.2-4.9); Lymphocytes Percent Auto 33.7 % (20-40); Mean Corpuscular HGB Conc 34.8 g/dl (31.0-36.0); Mean Corpuscular Hemoglobin 32.8 pg (27.0-33.0); Mean Corpuscular Volume 94.3 fL (80.0-98.0); Mean Platelet Volume 10.1 fL (9.4-12.4); Monocytes Absolute Auto 0.6 X10*3/uL (0.1-1.2); Monocytes Percent Auto 8.1 % (2-11); Neutrophils Absolute Auto 4.2 x10*3/uL (2.0-8.3); Neutrophils Percent Auto 55.2 % (45-73); Platelet Count 182 X10*3/uL (160-400); Red Blood Count 4.72 X10*6/uL (4.60-5.80); Red Cell Distribution Width 11.3 % (11.0-16.0); White Blood Count 7.6 X10*3/uL (4.8-10.8)
[2024-10-11 08:07] LABS: Estimated Average Glucose 169 mg/dL; Hemoglobin A1c % 7.5 % (<6.0)
[2024-10-11 08:16] LABS: Appearance Urine Hazy; Color Urine Yellow; Glucose Urine UA 500 mg/dL (Negative); Leukocyte Esterase Urine Negative (Negative); Nitrite Urine Negative (Negative); Specific Gravity - Urine >= 1.030 (1.005-1.025); UMIC TRIGGER UACC YES; Urine Blood Negative (Negative); Urine Ketones Negative (Negative); Urine Protein 100 (2+) mg/dL (Neg-Trace)
[2024-10-11 08:31] LABS: Bacteria Urine None Seen (None Seen); RBC Urine 0-2 /HPF (0-2); WBC Urine 0-5 /HPF (0-5)
[2024-10-11 08:35] LABS: Alanine Aminotransferase 70 U/L (0-40); Albumin Level 4.5 g/dL (3.5-5.0); Alkaline Phosphatase 73 U/L (39-117); Anion Gap 12 (12-20); Aspartate Amino Transferase 33 U/L (5-37); Bilirubin Total 0.7 mg/dL (0.0-1.0); Blood Urea Nitrogen 16 mg/dL (9-16); Carbon Dioxide 25 mmol/L (22-29); Chloride 105 mmol/L (96-108); Cholesterol 179 mg/dL (<200); Estimated Glomerular Filt Rate > 60; Glucose Fasting 199 mg/dL (60-99); HDL Cholesterol 36 mg/dL (>40); LDL Cholesterol Calculated 91 mg/dL (<100); Potassium 3.4 mmol/L (3.3-5.1); Sodium 139 mmol/L (135-145); Total Protein 7.1 g/dL (6.5-8.0); Triglycerides 260 mg/dL (<150)
[2024-10-11 08:55] LABS: Folate 9.6 ng/mL (> or = 4.0); Prostate Specific Antigen Scr 2.22 ng/mL (<0.05-4.0); TSH reflex Free T4 3.55 uIU/mL (0.32-4.0); Vitamin B12 645 pg/mL (200-900); Vitamin D 25-OH Total 28.6 ng/mL (>30)
[2024-10-11 09:47] LABS: Creatinine Urine 353.84 mg/dL; Microalbum/Creatinine Ratio Ur 21.7 ug/mg cr (<30)
== END 2024-10-11 06:56 | disposition home or self-care (01) ==
LOC: HO.LAB 06:55
PROVIDERS: PCP Internal Medicine; Visit Provider Internal Medicine
DX: Z00.00 Encounter for general adult medical examination without abnormal findings (principal); E78.00 Pure hypercholesterolemia, unspecified; E55.9 Vitamin D deficiency, unspecified; D64.9 Anemia, unspecified; E11.9 Type 2 diabetes mellitus without complications; E53.8 Deficiency of other specified B group vitamins; Z12.5 Encounter for screening for malignant neoplasm of prostate
CPT/HCPCS: 36415; 80053; 80061; 81001; 82043; 82306; 82570; 82607; 82746; 83036; 84153; 84443; 85025

== ENCOUNTER 2024-10-12 12:42 | Outpatient (AMB) | payer OTHER, SELFPAY ==
[2024-10-12 12:45] VITALS: BP 134/92; PULSE 86; O2SAT 96; BMI 31.5
--- NOTE | 2024-10-12 12:45 | MHC.PC.OV ---
Vital Signs 10/12/24 12:45 Height 6 ft Weight 232 lb 6 oz BMI 31.5 BP 134/92 H Blood Pressure Location Lt femoral Position Sitting Pulse 86 Pulse Source Pulse Oximeter Pulse Oximetry (%) 96 Oxygen Delivery Method Room Air Intake Visit Reasons: med follow up- repeat A1C Loss Claim Clerk Required: No Accompanied by: Self / Same As Patient Allergies No Known Allergies (No Known Allergies*) Allergy (Verified 10/12/24 13:18) Medication List - Last Reconciled 10/12/24 by Jon Pal MD albuterol sulfate 90 mcg/actuation 2 puffs inhalation Q6H PRN atorvastatin 10 mg PO BEDTIME cholecalciferol (vitamin D3) 50 mcg PO DAILY 90 days clonazepam 1 mg PO TID PRN 28 days fluticasone propionate 50 mcg/actuation 2 sprays intranasal DAILY loratadine 10 mg PO DAILY PRN metformin 500 mg PO BID quetiapine 100 mg PO BEDTIME tramadol 50 mg PO QID PRN 28 days trazodone 50 mg PO BEDTIME PRN 30 days zolpidem 10 mg PO BEDTIME PRN Tobacco use date assessed: 10/12/24 Dental Screening Dental Screen Date: 10/12/24 Did you have a dental visit in the last 12 months?: Yes Did you have a dental problem in the last 6 months where you did not have access to dental care?: No Was dental information given to patient?: Patient has dentist HPI med follow up- repeat A1C HPI Details Patient comes in today for his follow up visit - he has not been back since his last appointment in November 2023 States that he feels okay He denies any headaches or dizziness Denies any exertional chest pains, no increased SOB No nausea/vomiting, no abdominal pain No change in bowel habits noted He had his follow up labs done yesterday - to discuss his results [facility] Medical History Mixed hyperlipidemia Vitamin D deficiency Type 2 diabetes mellitus with hyperglycemia, without long-term current use of insulin Allergic rhinitis Obesity (BMI 30-39.9) Smoker Depression Anxiety Insomnia Degenerative arthritis of thoracic spine Asthma Elevated LFTs Pure hypercholesterolemia Surgical History No pertinent past surgical history Family History Father Cancer Mother Medical history unknown Son No problems noted. Daughter No problems noted. Daughter No problems noted. Sister No problems noted. Brother No problems noted. Social History Housing: Apartment Alcohol intake: current Alcohol intake frequency: holidays/special occasions only Patient Tobacco Use Status: Current everyday Tobacco user Tobacco use type: Cigarette Cigarettes Per Day: 3 e-Cigarette/Vaping Use: Never Used Second Hand Smoke Exposure: Yes service: No Current occupational status: disabled Current occupational exposures/hazards: No Cognitive needs: No Hearing needs: No Vision needs: No Questionnaire PHQ-9 Over the last 2 weeks, how often have you been bothered by any of the following problems? 1. Little interest or pleasure in doing things: not at all 2. Feeling down, depressed, or hopeless: several days 3. Trouble falling or staying asleep, or sleeping too much: several days 4. Feeling tired or having little energy: several days 5. Poor appetite or overeating: not at all 6. Feeling bad about yourself - or that you are a failure or have let yourself or your family down: not at all 7. Trouble concentrating on things, such as reading the newspaper or watching television: not at all 8. Moving or speaking so slowly that other people could have noticed. Or the opposite - being so fidgety or restless that you have been moving around a lot more than usual: not at all 9. Thoughts that you would be better off or of hurting yourself in some way: not at all Total score: 3 Depression Screening Interpretation: Positive Depression Screening Follow-up: Existing condition and In treatment Depression Screening Done: Yes 42841 - PHQ-9 Billing: Yes Source: Developed by Drs. Gerardo Anaya, Leah Stevenson, Stevo Arevalo and colleagues, with an educational lopez from [employer]. Thrive Questionnaire Date Thrive assessed: 10/12/24 I am a: Patient What is your living situation today?: I choose not to answer this question Within the past 12 months, did the food you bought not last and you didn't have the money to get more?: I choose not to answer this question Within the past 12 months, did you worry whether your food would run out before you got money to buy more?: I choose not to answer this question Do you have trouble paying for medicines?: I choose not to answer this question Do you have trouble getting transportation to medical appointments?: I choose not to answer this question Do you have trouble paying your heating and electricity bill?: I choose not to answer this question Do you have trouble taking care of your child, family member or friend?: I choose not to answer this question Do you have trouble with day-to-day activities such as bathing, preparing meals, shopping, managing finances, etc.?: I choose not to answer this question Are you currently unemployed and looking for a job?: I choose not to answer this question Are you interested in more education?: I choose not to answer this question Please select the resources that you would like help with: None Currently or been in a relationship where the following occur: I choose not to answer THRIVE Score: 0 AUDIT C Alcohol Use Questionnaire (AUDIT-C) 1. How often do you have a drink containing alcohol?: Never 3. How often do you have six or more drinks on one occasion?: Never Total Score: 0 Score Reviewed/Action Taken: Yes KATH-7 AMB Questionnaire KATH-7 Date KATH - 7 assessed: 10/12/24 Feeling nervous, anxious, or on edge: 3 = Nearly every day Not being able to stop or control worryin = Nearly every day Worrying too much about different things: 3 = Nearly every day Trouble relaxin = More than half the days Being so restless that it is hard to sit still: 2 = More than half the days Becoming easily annoyed or irritable: 2 = More than half the days Feeling afraid as if something awful might happen: 2 = More than half the days Total KATH-7 score (0-4 normal; 5-9 mild; 10-14 moderate; 15-21 severe): 17 Source: Developed by Drs. Gerardo Anaya, Leah Stevenson, Stevo Arevalo and colleagues, with an educational lopez from [employer]. Review of Systems Const Denies chills, Reports difficulty sleeping (Zolpidem Rx helps), Denies fatigue, Denies fever(s) and Denies headache(s) ENT Denies dysphagia, Denies dizziness, Denies otalgia, Denies headache(s), Denies neck pain, Denies odynophagia and Denies sore throat Card Denies chest pain, Denies palpitations and Reports dyspnea on exertion (mild, at times) Resp Denies chest congestion, Denies cough, Reports dyspnea on exertion (mild, at times) and Denies wheezing GI Denies abdominal pain, Denies constipation, Denies dysphagia, Denies heartburn, Denies diarrhea, Denies nausea, Denies odynophagia and Denies vomiting Denies dysuria, Denies nocturia and Denies urinary frequency Musc Details: (+) recurrent right hand pain Reports back pain (over the lower thoracic and lumbar spine - chronic) and Denies neck pain Skin/Breast Denies rash Neuro Denies dizziness and Denies headache(s) Endo Denies fatigue, Reports polydipsia and Denies palpitations Aller/Immun Denies wheezing Physical exam (Primary Care) Vital Signs: Last Vital Signs Pulse 86 10/12/24 12:45 BP 134/92 H 10/12/24 12:45 Pulse Ox 96 10/12/24 12:45 Oxygen Delivery Method Room Air 10/12/24 12:45 BMI result Body Mass Index 31.5 Tobacco/Smoking Status: Tobacco use Status Tobacco use date assessed 10/12/24 10/12/24 12:49 Patient Tobacco Use Status Current everyday Tobacco 10/12/24 12:49 Tobacco use type Cigarette 10/12/24 12:49 e-Cigarette/Vaping Use Never Used 10/12/24 12:49 PHQ-9: PHQ-9 Score PHQ-9: Total score 3 10/12/24 12:49 Depression Screening Interpretation: Positive Depression Screening Follow-up: Existing condition and In treatment Thrive Assessment: Date of Thrive Assessment Date Thrive assessed 10/12/24 10/12/24 12:49 Currently or been in a relationship where the following occur: I choose not to answer Const General: no acute distress and alert HENMT Ears: TM's normal bilaterally and EAC's normal Throat: Yes posterior oropharynx normal and Yes tonsils normal (no TP congestion) Neck Neck: Yes supple and No lymphadenopathy Thyroid: Thyroid normal Resp Auscultation: clear to auscultation bilaterally, no rales and no wheezes Cardio Rate: regular rate Rhythm: regular rhythm Heart sounds: no murmurs GI Palpation (GI): Soft to palpation and nontender Auscultation: normal bowel sounds General: Yes no CVA tenderness Back/Spine/Pelvis Back: no CVA tenderness Thoracic/Lumbar Spine: lumbar spinal tenderness Skin Rashes: no rashes Extrem General: Yes no clubbing, cyanosis or edema Results Reviewed Results Reviewed: Laboratory Tests 10/11/24 10/11/24 07:05 07:06 WBC 7.6 Hgb 15.5 Hct 44.5 Plt Count 182 Sodium 139 Potassium 3.4 Creatinine 0.96 Estimated GFR > 60 Fasting Glucose 199 H Hemoglobin A1c % 7.5 H Calcium 9.0 AST 33 ALT 70 H Triglycerides 260 H Cholesterol 179 LDL Cholesterol, Calc 91 HDL Cholesterol 36 L PSA Screen 2.22 Vitamin B12 645 25-OH Vitamin D Total 28.6 L TSH 3.55 Ur Specific [place] >= 1.030 H Urine Protein 100 (2+) H Urine Glucose (UA) 500 H Urine Blood Negative Urine Nitrite Negative Ur Leukocyte Esterase Negative Urine Microalbumin 77.0 Microalb/Creat Ratio 21.7 Coding Level of Care Code Est Pt Level 4 (49635) Complex EM visit Add On G2211 Diagnoses Type 2 diabetes mellitus with hyperglycemia, without long-term current use of insulin E11.65 Pure hypercholesterolemia E78.00 Elevated LFTs R79.89 Mild intermittent asthma without complication J45.20 Asthma severity: mild Asthma persistence: intermittent Asthma complication type: uncomplicated Seasonal allergic rhinitis, unspecified trigger J30.2 Allergic rhinitis trigger: unspecified Allergic rhinitis seasonality: seasonal Vitamin D deficiency E55.9 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 Spinal osteoarthritis complication: without myelopathy or radiculopathy Insomnia, unspecified type G47.00 Insomnia type: unspecified Anxiety F41.9 Depression, unspecified depression type F32.9 Depression Type: unspecified Smoker F17.200 Obesity (BMI 30-39.9) E66.9 Additional Codes PHQ-9 - 52162 - PHQ-9 Billing: Yes ([id number]) Assessment & Plan Assessment & Plan (1) Type 2 diabetes mellitus with hyperglycemia, without long-term current use of insulin: Code(s): E11.65 - Type 2 diabetes mellitus with hyperglycemia Category: Medical Plan: Patient's HgbA1c was at 7.5% on his labs done yesterday (in-office HgbA1c was at 6.2% when he was last seen on 12/12/2023) - goal is at least <7.0% Reinforced diabetic diet Continue Metformin 500 mg BID for now but patient is advised that if his diabetes control does not improve further over the next few months, we will need to make some adjustments or changes to his medications (2) Pure hypercholesterolemia: Code(s): E78.00 - Pure hypercholesterolemia, unspecified Category: Medical Plan: Results of his labs done yesterday reviewed and discussed with patient Reinforced low cholesterol diet Continue Atorvastatin 10 mg QD Will recheck his labs and fasting lipids in 4 months for follow up (3) Elevated LFTs: Code(s): R79.89 - Other specified abnormal findings of blood chemistry Category: Medical Plan: His serum AST was normal but ALT was elevated on his recent labs Hepatitis profile back in 2020 came back negative Abdominal US done in 2020 revealed only (+) findings of hepatosteatosis Reinforced avoidance of all Tylenol-containing medications as well as alcohol Will continue to monitor his LFTs regularly (4) Asthma: Code(s): J45.909 - Unspecified asthma, uncomplicated Category: Medical Qualifiers: Asthma severity: mild Asthma persistence: intermittent Asthma complication type: uncomplicated Qualified Code(s): J45.20 - Mild intermittent asthma, uncomplicated Plan: Controlled lately Continue Albuterol HFA 2 puffs 4 times a day as needed (5) Allergic rhinitis: Code(s): J30.9 - Allergic rhinitis, unspecified Category: Medical Qualifiers: Allergic rhinitis trigger: unspecified Allergic rhinitis seasonality: seasonal Qualified Code(s): J30.2 - Other seasonal allergic rhinitis Plan: Continue Loratadine 10 mg QD PRN and Fluticasone 50 mcg nasal spray QD PRN (6) Vitamin D deficiency: Code(s): E55.9 - Vitamin D deficiency, unspecified Category: Medical Plan: Continue Vitamin D3 2000 units QD (7) Degenerative arthritis of thoracic spine: Code(s): M47.814 - Spondylosis without myelopathy or radiculopathy, thoracic region Category: Medical Qualifiers: Spinal osteoarthritis complication: without myelopathy or radiculopathy Qualified Code(s): M47.814 - Spondylosis without myelopathy or radiculopathy, thoracic region Plan: Reinforced activity and weight-lifting restrictions Continue Tramadol 50 mg TID PRN (8) Insomnia: Code(s): G47.00 - Insomnia, unspecified Category: Medical Qualifiers: Insomnia type: unspecified Qualified Code(s): G47.00 - Insomnia, unspecified Plan: Sleep hygiene reinforced Continue Zolpidem 10 mg Q HS PRN States that his Quetiapine helps with his sleep at night as well (9) Anxiety: Code(s): F41.9 - Anxiety disorder, unspecified Category: Medical Plan: Continue Clonazepam 1 mg TID PRN (10) Depression: Code(s): F32.9 - Major depressive disorder, single episode, unspecified Category: Medical Qualifiers: Depression Type: unspecified Qualified Code(s): F32.9 - Major depressive disorder, single episode, unspecified Plan: Continue Quetiapine 100 mg Q HS Follow up with psychiatry as scheduled (11) Smoker: Code(s): F17.200 - Nicotine dependence, unspecified, uncomplicated Category: Social Hx Plan: Patient is counseled again on complete smoking cessation (12) Obesity (BMI 30-39.9): Code(s): E66.9 - Obesity, unspecified Category: Medical Plan: Reinforced diet/exercise as tolerated/lose weight Plan Follow up in 4 months Orders: Orders Complete Blood Count Auto Diff 4 Months D64.9 - Anemia, unspecified Microalbumin, Random (w Creat) 4 Months E11.9 - Type 2 diabetes mellitus without complications Hemoglobin A1c 4 Months E11.9 - Type 2 diabetes mellitus without complications Vitamin B12 and Folate 4 Months E53.8 - Deficiency of other specified B group vitamins Comprehensive [place]. Panel Fast 4 Months E78.00 - Pure hypercholesterolemia, unspecified Lipid Panel 4 Months E78.00 - Pure hypercholesterolemia, unspecified TSH reflex Free T4 4 Months E78.00 - Pure hypercholesterolemia, unspecified UA CC w/rflx Micro + Cult 4 Months R30.0 - Dysuria Vitamin D 25-OH Total 4 Months E55.9 - Vitamin D deficiency, unspecified
--- OUTSIDE RECORDS SUMMARY | 2024-10-12 13:34 | XMS_ITS | Patient Health Record ---
Author Organization [facility] Address [address] [place] [address] Care Team Providers Care Integration Analyst Name Role Phone Demarco Jon Primary Care Provider Unavaila ble Allergies No Known Allergies Reason For Referral No Information Medications Medication SIG (Take, Route, Frequency, Duration) Notes Start Date End Date Status clonazePAM 1 MG 1 tablet Orally thre e times a day as needed Active Albuterol Sulfate 108 (90 Base) MCG/ACT 1 puff as needed Inhalation every 4 hrs Active traMADol HCl 50 MG 1 tablet as needed O rally Once a day Active QUEtiapine Fumarate 100 MG 1 tablet at b edtime Orally Once a day Active Plan Of Treatment Pending Test Test Name Order Date Nail avulsion partial/complete 1 Nail avulsion partial/complete 1 Nail avulsion each add nail plate 2020 Nail avulsion each add nail plate 2020 Insurance Providers Payer Name Payer Address Payer Phone Subscriber Number Group Number Insured Name Patient Relationship to Insured Coverage Start Date Coverage End Date [facility] [address] [place] [phone] [phone] [id number] Zachary Pemberton Self - patient is the insured Medical (General) History Medical History History ICD Code Pure hypercholesterolemia Elevated LFTs Asthma Degenerative arthritis of thoracic spine Insomnia Hyperpigmented skin lesion Anxiety Depression Smoker Obesity (BMI 30-39.9)
--- OUTSIDE RECORDS SUMMARY | 2024-10-12 13:34 | XMS_ITS | Clinical Summary ---
Author Organization [address] [place] [address] Address [address] [place] [address] Phone Care Team Providers Care Sider Name Role Phone Jon Pal MD Primary Care Provider Allergies No known active allergies Medications silver sulfADIAZINE (SILVADENE, SSD) 1 % cream Apply small amount to the wound once daily before dressing with bandaid 2 Active albuterol sulfate (ProAir RespiClick) 90 mcg/actuation aerosol powdr breath activated Inhale into the lungs. Active clonazePAM (KlonoPIN) 1 mg tablet Take 1 mg by mouth 2 times daily as needed. Active fluticasone propionate (FLONASE) 50 mcg/actuation nasal spray 2 Sprays by Each Nare route daily. Active loratadine (CLARITIN) 10 mg tablet Take 10 mg by mouth daily. Active QUEtiapine (SEROquel) 100 mg tablet Take 100 mg by mouth 2 times daily. Active traMADoL (ULTRAM) 50 mg tablet Take 50 mg by mouth every 6 hours as needed. Active Surgical History Surgery Date Site/Laterality Comments OTHER SURGICAL HISTORY PROCEDURE: DENIES PREVIOUS SURGERY Medical History Medical History Date Comments Allergies DX:Allergies Anxiety disorder DX:Anxiety diso rder Mild intermittent asthma, uncomplicated DX:Mild intermittent asthma, uncomplicated Degenerative arthritis of thoracic spine DX:Degenerative arthritis of thoracic spine Depression DX:Depression Elevated LFTs DX:Elevated LFTs Hyperpigmented skin lesion DX:Hy perpigmented skin lesion Insomnia DX:Insomnia Obesity DX:Obesity Pure hypercholesterolemia DX:Pur e hypercholesterolemia Social History Tobacco Use Types Packs/Day Years Used Date Smoking Tobacco: Some Days Smokeless Tobacco: Never Alcohol Use Standard Drinks/Week Comments Never 0 (1 standard drink = 0.6 oz pur e alcohol) Sex and Gender Information Value Date Recorded Sex Assigned at Not on file Legal Sex Male 4:35 AM EST Gender Identity Not on file Sexual Orientation Not on file Obstetrics History Last Filed Vital Signs Vital Sign Reading Time Taken Comments Blood Pressure - - Pulse - - Temperature - - Respiratory Rate - - Oxygen Saturation - - Inhaled Oxygen Concentration - - Weight 117 kg (259 lb) 10/23/2021 10:48 AM EDT Height 180.3 cm (5' 11 ) 10/23/2021 10:48 AM EDT Body Mass Index 36.12 10/23/2021 10:48 AM EDT Plan of Treatment Health Maintenance Due Date Last Done Comments DTaP,Tdap,and Td Vaccines (1 - Tdap) 1990 Hepatitis B Vaccines (1 of 3 - 19+ 3-dose series) 1990 Pneumococcal Vaccine: 50+ Ye ars (1 of 2 - PCV) 1990 Pneumococcal Vaccine: Pediat rics (0 to 5 Years) and At-Risk Patients (6 to 64 Years) (1 of 2 - PCV) 1990 Zoster Vaccines (1 of 2) 2021 Cholesterol Screening (Lipid Panel) 03/17/2022 Colorectal Cancer Screening: Colonoscopy 03/17/2022 Depression Screening 03/17/2022 HIV Screening 03/17/2022 Hepatitis C Screening 03/17/2022 Medicare Annual Wellness Visit 03/17/2022 Social Influencers of Health Screening 03/17/2022 COVID-19 Vaccine (2023-2 5 season) 2023 Influenza Vaccine (Season Ended) 2024 HIB Vaccines Aged Out No longer eligi ble based on patient's age to complete this topic HPV Vaccines Aged Out No longer eligi ble based on patient's age to complete this topic Hepatitis A Vaccines Aged Out No long er eligible based on patient's age to complete this topic IPV Vaccines Aged Out No longer eligi ble based on patient's age to complete this topic MMR Vaccines Aged Out No longer eligi ble based on patient's age to complete this topic Meningococcal ACWY Vaccine Aged Out N o longer eligible based on patient's age to complete this topic Meningococcal B Vaccine Aged Out No l onger eligible based on patient's age to complete this topic RSV Immunization Patients Un ann 20 months Aged Out No longer eligible b ased on patient's age to complete this topic Varicella Vaccines Aged Out No longer eligible based on patient's age to complete this topic Insurance [facility] MEDICARE Member Subscriber Plan / Payer (Ef fective 2020-Present) Name:Zachary Pemberton M Relation to Subscriber:Self Name:Zachary Pemberton M Payer ID:[id number] Group ID:[id number] Type:Not on file Address: [place] [address] [address] Care Teams Sider Relationship Specialty Start Date End Date Jon Pal MD [address] [place] [address] Dr [address] [place] PCP - General Internal Medicine 09/04/21
== END 2024-10-12 13:30 | disposition home or self-care (01) ==
LOC: HO.HMCH 12:43
PROVIDERS: PCP Internal Medicine; Visit Provider Internal Medicine
DX: E11.65 Type 2 diabetes mellitus with hyperglycemia (principal); E78.00 Pure hypercholesterolemia, unspecified; E66.9 Obesity, unspecified; Z68.31 Body mass index [BMI] 31.0-31.9, adult; R79.89 Other specified abnormal findings of blood chemistry; J45.20 Mild intermittent asthma, uncomplicated; J30.2 Other seasonal allergic rhinitis; E55.9 Vitamin D deficiency, unspecified; M47.814 Spondylosis without myelopathy or radiculopathy, thoracic region; G47.00 Insomnia, unspecified; F41.9 Anxiety disorder, unspecified; F32.9 Major depressive disorder, single episode, unspecified; F17.200 Nicotine dependence, unspecified, uncomplicated

== ENCOUNTER → 2024-10-12 12:42 | Outpatient (BNVA) | payer OTHER, SELFPAY | PROVIDERS: PCP Internal Medicine; Visit Provider Internal Medicine | DX: E11.65 Type 2 diabetes mellitus with hyperglycemia (principal); E78.00 Pure hypercholesterolemia, unspecified; J45.20 Mild intermittent asthma, uncomplicated; J30.2 Other seasonal allergic rhinitis; E55.9 Vitamin D deficiency, unspecified; M47.814 Spondylosis without myelopathy or radiculopathy, thoracic region; G47.00 Insomnia, unspecified; F41.9 Anxiety disorder, unspecified; F32.9 Major depressive disorder, single episode, unspecified; R79.89 Other specified abnormal findings of blood chemistry | CPT/HCPCS: 96127; 99212 ==